=== PATIENT | female | born 1955 | race Caucasian/White ===

== ENCOUNTER → 2017-10-06 | Outpatient (CLI) | payer OTHER ==
--- NOTE | 2017-10-06 11:40 | Diagnostic Imaging Report ---
INDICATION: Popping and pain, worsening over a 3 month interval. FINDINGS: There is relatively mild arthritic narrowing of the left hip joint. The bony architecture appears normal. No abnormal periosteal reaction or erosion. No avulsion. No fracture. IMPRESSION: Unremarkable left hip radiographs. Dictated by: Dictated on workstation # [id number]
--- NOTE | 2017-10-06 11:47 | Diagnostic Imaging Report ---
INDICATION: Low back pain. Three views were obtained. FINDINGS: The alignment of the lumbar spine is normal. Vertebral body heights are well-maintained. Disc spaces are relatively well-maintained. There is some lower lumbar hypertrophic degenerative facet disease. IMPRESSION: Lower lumbar hypertrophic degenerative facet disease otherwise unremarkable. Dictated by: Dictated on workstation # [id number]
== END ==
LOC: RAD 10:47
PROVIDERS: ATTEND Internal Medicine
DX: M89.38 Hypertrophy of bone, other site (principal); M25.552 Pain in left hip
CPT/HCPCS: 72100; 73502

== ENCOUNTER → 2017-10-23 | Outpatient (CLI) | payer OTHER ==
--- NOTE | 2017-10-23 13:56 | Diagnostic Imaging Report ---
PROCEDURE: MRI lumbar spine. TECHNIQUE: Multiplanar, multisequence MRI of the lumbar spine was performed without contrast. INDICATION: Chronic low back pain. FINDINGS: The alignment of the lumbar spine is normal. The vertebral body heights are well maintained. There is no spondylolysis or spondylolisthesis. No fractures are identified. Conus medullaris is seen at L1 and is normal in appearance. The L1-L2 disc is unremarkable. At L2-L3, there is slight loss of disc height and signal intensity. There is mild facet disease and thickening of the ligamentum flavum. At L3-L4, there is slight loss of disc height and signal intensity. There is some facet disease with thickening of the ligamentum flavum. There is mild encroachment upon the right lateral recess. There is mild bilateral neuroforaminal encroachment. There is mild central spinal stenosis. At L4-L5, there is loss of disc height and signal intensity. There is facet disease and thickening of the ligamentum flavum. There is moderate central spinal stenosis with encroachment upon the lateral recess bilaterally left greater than right. There is moderate left and mild right neuroforaminal encroachment. At L5-S1, there is loss of disc height and signal intensity and some mild broad-based annular bulging slightly more prominent on the left. There is slight effacement of the ventral thecal sac with mild left neuroforaminal encroachment. The abdominal aorta is nonaneurysmal. The kidneys are unremarkable. IMPRESSION: Multilevel degenerative disc disease and diffuse lumbar spondylosis, as detailed above. Dictated by: Dictated on workstation # [id number]
== END ==
LOC: RAD 08:38
PROVIDERS: ATTEND Internal Medicine
DX: M48.061 Spinal stenosis, lumbar region without neurogenic claudication (principal); M47.817 Spondylosis without myelopathy or radiculopathy, lumbosacral region; M43.06 Spondylolysis, lumbar region
CPT/HCPCS: 72148

== ENCOUNTER → 2018-01-15 | Outpatient (CLI) | payer OTHER ==
--- NOTE | 2018-01-15 11:12 | Diagnostic Imaging Report ---
INDICATION: Osteoporosis. Bone mineral analysis of the lumbar spine and both hips was performed. The bone mineral density lumbar spine at L2-L4 is 1.018 with a T score -1.5. Bone mineral density left femoral neck is 0.847 with T score -1.4. Bone mineral density right femoral neck is 0.838 with a T score -1.4. IMPRESSION: Osteopenia of the lumbar spine and bilateral femoral necks. Dictated by: Dictated on workstation # [id number]
== END ==
LOC: RAD 08:38
PROVIDERS: ATTEND Physician Assistant
DX: M85.88 Other specified disorders of bone density and structure, other site (principal)
CPT/HCPCS: 77080

== ENCOUNTER → 2020-01-13 | Outpatient (CLI) | payer MEDICARE, OTHER ==
[~2020-01-13] VITALS: Ht 162 cm; Wt 68.0 kg
[~2020-01-13] MED LIST: CATHETER FLUSH 10 ML SYR IV PRN; REGADENOSON 0.4 MG/5 ML SYR (LEXISCAN) IV ONE
--- NOTE | 2020-01-13 09:13 | Diagnostic Imaging Report ---
EXAMINATION: Chest 2 view HISTORY: Fatigue and malaise. COMPARISON: Chest radiograph on 07/18/2016. FINDINGS: The lung volumes are normal. No focal consolidation is seen. Prominent interstitial markings are seen in the perihilar and basilar regions bilaterally. No large pleural effusion or pneumothorax is seen. The cardiomediastinal silhouette is normal in size and contour. No acute osseous abnormality is seen. IMPRESSION: 1. Prominent interstitial markings in the perihilar and basilar regions bilaterally, which may represent infection or edema. No focal consolidations. No pleural effusion. Dictated by: Dictated on workstation # [id number]
[2020-01-17 17:17] VITALS: BP 135/73
--- NOTE | 2020-01-17 17:17 | Cardiology Stress Test Report ---
Stress Test Report Type of NM Stress Test: Test Type: LEXISCAN 0.4MG/5ML Date of Procedure/Referring: Date of Procedure: Jan 13, 2020 PCP Roderick Zee DO Admitting Physician Roderick Zee DO Indications: Fatigue/malaise/hyperlipidemia Baseline Heart Rate: 70 Baseline Blood Pressure: Blood Pressure Systolic: 135 Blood Pressure Diastolic: 73 Baseline EKG: Baseline EKG: sinus rhythm Summary & Conclusion: Summary: The patient was brought to the stress lab after informed consent was taken. Stress test was performed according to the Lexiscan protocol. 0.4 mg of IV Lexiscan was given. Please see Dr. Zee's note for the stress test. Baseline EKG showed sinus rhythm at 70 BPM. Initial blood pressure was 135/73 mmHg. Maximum heart rate was 103 bpm and blood pressure 148/90 mmHg. 11 mCi of Myoview were given for rest imaging and 31 mCi of Myoview given for stress imaging. Transient ischemic dilatation score 1.17, EF 28 percent. Global hypokinesis. Possible mild small apical reversible defect. SSS 1, SRS 0, SDS 1 Conclusion: Pharmacological stress test was negative for ischemia. Moderate to severe LV systolic dysfunction with global hypokinesis. Possible mild apical ischemia. Clinical correlation is recommended. Dr. Zee was notified. Janet CANDELARIO MD Jan 17, 2020 17:17
== END ==
LOC: CARD 07:02
PROVIDERS: ATTEND Internal Medicine
DX: I45.4 Nonspecific intraventricular block (principal); M19.90 Unspecified osteoarthritis, unspecified site; G47.09 Other insomnia; F41.8 Other specified anxiety disorders; J98.4 Other disorders of lung; R35.0 Frequency of micturition; R53.83 Other fatigue
CPT/HCPCS: 71046; 78452; 93017

== ENCOUNTER → 2020-02-04 | Outpatient (CLI) | payer MEDICARE, OTHER | LOC: CARD 09:45 | PROVIDERS: ATTEND Internal Medicine | DX: R53.83 Other fatigue (principal) | CPT/HCPCS: 93306 ==

== ENCOUNTER 2020-03-21 05:42 | Outpatient (RCR) | payer MEDICARE, OTHER ==
[~2020-03-21] VITALS: Ht 162 cm; Wt 68.0 kg
[~2020-03-21 05:42] MED LIST changes: +ASPI-999 PO; -CATHETER FLUSH 10 ML SYR IV PRN; +FISH1CAP15 PO; +FLUO20CA42 PO; +LISI10TA2 PO; +LOVA20TA2 PO; +MELO7.5T46 PO; +MULT-1136 PO; -REGADENOSON 0.4 MG/5 ML SYR (LEXISCAN) IV ONE
== END 2020-03-21 15:40 | disposition home or self-care (01) ==
LOC: PREOP 05:42
PROVIDERS: ATTEND Specialist
DX: Z01.818 Encounter for other preprocedural examination (principal); Z11.59 Encounter for screening for other viral diseases
CPT/HCPCS: 87635

== ENCOUNTER 2020-03-21 07:07 | Day surgery (SDC) | payer MEDICARE, OTHER ==
[~2020-03-21] VITALS: Ht 162 cm; Wt 76.0 kg
[2020-03-21] VITALS (10 sets, daily range): BP systolic 115–156; BP diastolic 45–89
--- OUTSIDE RECORDS SUMMARY | 2020-03-21 07:13 | XMS REPORT | Continuity of Care Document ---
Author Author FABYSylvia LOVELACE 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 Unavailable Unavailable Problems Combined list of all problems from all Department of Defense and [facility] facilities. It does not include entries that were removed or entered in error. Problem Status Onset Date Problem Type Date of Resolution Comments Source Need For Prophylactic Measure Inactive Condition [facility] Medications Combined list of all outpatient medications recorded within the last 15 months b y all Department of Defense and Veterans Affairs facilities, and also all pati t-reported medications. Medication Details Route Status Patient Instructions Prescription Expires Prescript ion Number Last Dispense Date Ordering Pr ovider Order Date Source BROMSITE (bromfenac sodium), 0.075 %, DR DESOUZA, OPHTHALMIC, SUN PHARMACEUTI, 5 ml DROP BTL [id number] [facility] FLUOXETINE HCL (fluoxetine HCl), 20 MG, CAPSULE, ORAL, AVKARE, 1000 ea. BOTTLE Active [id number] 12/29/2019 [facility] 12/30/2019 [facility] FLUOXETINE HCL (fluoxetine HCl), 20 MG, CAPSULE, ORAL, AVKARE, 1000 ea. BOTTLE Active [id number] 01/13/2019 [facility] SELLERS 01/16/2019 [facility] FLUOXETINE HCL (fluoxetine HCl), 20 MG, CAPSULE, ORAL, AVKARE, 1000 ea. BOTTLE Active [id number] 04/21/2019 [facility] SELLERS 04/22/2019 [facility] FLUOXETINE HCL (fluoxetine HCl), 20 MG, CAPSULE, ORAL, AVKARE, 1000 ea. BOTTLE Active [id number] 07/02/2019 [facility] SELL[facility] 07/14/2019 [facility] FLUOXETINE HCL (fluoxetine HCl), 20 MG, CAPSULE, ORAL, AVKARE, 1000 ea. BOTTLE Active [id number] 09/30/2019 [facility] 09/30/2019 [facility] LISINOPRIL (lisinopril), 10 MG, TABLET, ORAL, LUPIN PHARMACEU, 1000 ea. BOTTLE Active [id number] 01/28/2020, 01/28/2020 [facility] LOVASTATIN (LOVASTATIN), 20 MG, TABLET, ORAL, [place] TECH, 1000 ea. BOTTLE Active [id number] 01/10/2020,[facility] 01/11/2020 [facility] LOVASTATIN (LOVASTATIN), 20 MG, TABLET, ORAL, [place] TECH, 1000 ea. BOTTLE Active [id number] 01/13/2019SELLERS,VIRGIE 01/16/2019 [facility] LOVASTATIN (LOVASTATIN), 20 MG, TABLET, ORAL, [place] TECH, 1000 ea. BOTTLE Active [id number] 04/15/2019SELLERS,VIRGIE 04/15/2019 [facility] LOVASTATIN (LOVASTATIN), 20 MG, TABLET, ORAL, [place] TECH, 1000 ea. BOTTLE Active [id number] 07/12/2019SELLERS,VIRGIE 07/23/2019 [facility] LOVASTATIN (LOVASTATIN), 20 MG, TABLET, ORAL, [place] TECH, 1000 ea. BOTTLE Active [id number] 10/10/2019SELLERS,VIRGIE 10/11/2019 [facility] Meloxicam (Meloxicam), 7.5mg, Tablet, Or al, [place] Pharmac, 1000 Ea. Bottle Active [id number] 01/12/2020, 01/12/2020 [facility] Meloxicam (Meloxicam), 7.5mg, Tablet, Or al, [place] Pharmac, 1000 Ea. Bottle Active [id number] 02/07/2020, 02/08/2020 [facility] Meloxicam (Meloxicam), 7.5mg, Tablet, Or al, [place] Pharmac, 1000 Ea. Bottle Active [id number] 03/06/2020, 03/06/2020 [facility] OFLOXACIN (OFLOXACIN), 0.3 %, DROPS, OPH THALMIC, RISING PHARM, 5 ml DROP BTL Active [id number] 03/06/2020 [facility], 03/07/2020 [facility] PREDNISOLONE ACETATE (PREDNISOLONE ACETA TE), 1%, DROPS SUSP, OPHTHALMIC, BRITT PHARM, 5 ml DROP BTL Active [id number] 03/06/2020 [facility], 03/07/2020 [facility] Allergies, Adverse Reactions, Alerts No Known Medication Allergies Immunizations No Data Provided for This Section Results No Data Provided for This Section Vital Signs No Data Provided for This Section Encounters Combined list of encounters at Department of Defense and/or Veterans Affairs (VA ) for the last 15 months. Not all VA inpatient encounters are included. The incl uded entries comply with the patient's data sharing authorizations. Location Location Details Encounter Type Encounter Number Reason For Visit Attending Provider ADM Date DC Date Status Disposition Source OUTPATIENT [id number] Notes Entered by: CARMEN PEREZ 27 Oct 2013 0845 ARIANNA VICENTE 10/27/2013 Released w/o Limitations [employer] [facility] [place], [place] [employer]([facility]) Procedures No Data Provided for This Section Social History Combined list of available smoking, tobacco, and other social history on record at Department of Defense and/or Veterans Affairs facilities. The included entrie s comply with the patient's data sharing authorizations. Social History Type Response Date Comment Source This section is an empty social history section. [facility] Assessment and Plan No Data Provided for This Section Plan of Care No Data Provided for This Section Family History No Data Provided for This Section Advance Directives No Data Provided for This Section Functional Status No Data Provided for This Section
--- OUTSIDE RECORDS SUMMARY | 2020-03-21 07:13 | XMS REPORT ---
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 consulting marine engineer Talicious [facility] [employer] Address [address] [place] [address] Care Team Providers Care Summer Associate Name Role Phone VIRGIE SELLERS DO Unavailable Unavailable KEILY SILVESTRE Unavailable Unavailable Unavailable Unavailable Allergies No Information Medications No Information Problems Active Problems Problem Normalized Date Last Normalized Normalized Provider Fa cility Classification Problem(s) Recorded Problem Problem Sta tus Duration Genitourinary Frequency of 02-02-2020 - Episodic Active GERRY Gonzales [facility] Via symptoms and micturition DO Stephanie SELLERS ill-defined Hospital - conditions (10 [place] sources.) ([address]) Other bone Hypertrophy of 02-02-2020 - Episodic Active VIRGIE [facility] Via disease and bone, other DO Stephanie SELLERS musculoskeleta site Hospital - [facility] (11 sources.) ([address]) Conduction Nonspecific 02-02-2020 - Chronic Active VIRGIE [facility] Via disorders (10 intraventricul DO Stephanie SELLERS sources.) ar block [facility] ([address]) Other lower Other 02-02-2020 - Episodic Active VIRGIE [facility] Via respiratory disorders of DO Stephanie SELLERS disease (10 lung Hospital - sources.) [place] ([address]) Malaise and Other fatigue 02-02-2020 - Episodic Active VIRGIE [facility] Via fatigue (12 DO Stephanie SELLERS sources.) [facility] ([address]) Residual Other insomnia 02-02-2020 - Chronic Active VIRGIE [facility] Via codes; DO Stephanie SELLERS unclassified Hospital - (10 sources.) [place] ([address]) Anxiety Other 02-02-2020 - Chronic Active VIRGIE [facility] V ia disorders (10 specified DO Stephanie SELLERS sources.) anxiety Hospital - disorders [place] ([address]) Other bone Other 02-02-2020 - Episodic Active [facility] disease and specified [place] Stephanie musculoskeleta disorders of Hospital - l deformities bone density [place] (10 sources.) and structure, ([address]) other site Other Pain in left 02-02-2020 - Episodic Active [facility]IE [facility] Via non-traumatic hip VERITO DO Stephanie joint Hospital - disorders (11 [place] sources.) ([address]) Disorders of Pure 02-02-2020 - Chronic Active V[facility]IE [facility] Via lipid hypercholester VERITO , DO Stephanie metabolism (8 [place], Hospital - sources.) unspecified [place] ([address]) Spondylosis; Spinal 02-02-2020 - Episodic Active V[facility]IE [facility] Via intervertebral stenosis, SELLERS , DO Stephanie disc lumbar region Hospital - disorders; without [place] other back neurogenic (66847) problems (8 claudication sources.) Other acquired Spondylolysis, 02-02-2020 - Episodic Active JENNIFER SARAH [facility] Via deformities lumbar region SELLERS , DO Stephanie (12 sources.) Hospital - [place] ([address]) Spondylosis; Spondylosis 02-02-2020 - Chronic Active VIRGIE [facility] Via intervertebral without SELLERS , DO Stephanie disc myelopathy or Hospital - disorders; radiculopathy, [place] other back lumbosacral (70856) problems (12 region sources.) Osteoarthritis Unspecified 02-02-2020 - Chronic Active WILLIA M [facility] Via (10 sources.) osteoarthritis VERITO , DO Stephanie , unspecified Hospital - site [place] ([address]) Past or Other Problems Problem Normalized Date Last Normalized Normalized Provider Fa cility Classification Problem(s) Recorded Problem Problem Sta tus Duration Unclassified Spinal no information no information no name Not Available (4 sources.) stenosis, (11294) lumbar region without neurogenic claudication Procedures No Information Immunizations No Information Results No Information Vital Signs No Information Interventions No Information Plan of Treatment No Information Goals No Information Social History No Information Functional Status No Information Mental Status No Information Encounters Encounter Normalized Encounter Encounter Diagnosis Care Provi wanda Organization Date Type 01-15-2018 Patient encounter no information no name no or ganization name 10-23-2017 Patient encounter no information no name no or ganization name 10-06-2017 Patient encounter no information no name no or ganization name 02-04-2020 Patient encounter no information VIRGIE SELLERS DO [facility] Via Stephanie procedure (no phone) [facility] (no phone) 01-13-2020 Patient encounter no information VIRGIE SELLERS DO [facility] Via Stephanie procedure (no phone) [facility] (no phone) 01-15-2018 Patient encounter no information KEILY CARBALLO ( no [facility] Via Stephanie procedure phone) [facility] (no phone) 10-23-2017 Patient encounter no information VIRGIE SELLERS DO [facility] Via Stephanie procedure (no phone) [facility] (no phone) 10-06-2017 Patient encounter no information VIRGIE SELLERS DO [facility] Via Stephanie procedure (no phone) [facility] (no phone) Medical Equipment No Information Payers No Information Additional Source Comments This clinical document has been generated using [employer] software that has been certified by the Office of the National Coordinator for Health Information Technology (ONC 15.99.04.3023.Diam.31.00.0.283063) and the National Committee for [employer] (NCQA, as an eMeasure certified technology). FOR RECORDS PERTAINING TO PATIENTS WHO ARE OR HAVE BEEN ENROLLED IN A CHEMICAL D EPENDENCY/SUBSTANCE ABUSE PROGRAM, SOME INFORMATION MAY BE OMITTED. This clinica l summary was aggregated from multiple sources. Caution should be exercised in using it in the provision of clinical care. This summary normalizes information from multiple sources, and as a consequence, information in this document may ma terially change the coding, format and clinical context of patient data. In hailey tion, data may be omitted in some cases. CLINICAL DECISIONS SHOULD BE BASED ON T HE PRIMARY CLINICAL RECORDS. [employer] provides no warranty or guara ntee of the accuracy or completeness of information in this document.The followi ng information is based on time limited clinical information
--- OUTSIDE RECORDS SUMMARY | 2020-03-21 07:13 | XMS REPORT | Continuity of Care Document ---
Author Organization Unknown Address Unknown Phone Unavailable Allergies Active Description Code Type Severity Reaction Onset Reported/Identified Relationship to Patient Clinical Status Yes No Known Drug Allergies [id number] Drug Allergy Unknown N/A 03/20/2020 Medications There is no data. Problems Date Dx Coded Attending Type Code Diagnosis Diagnosed By 07/18/2016 Ot V76.12 OTH SCREEN MAMMO- MALIGN NEOPLASM OF GISELE 07/18/2016 VIRGIE SELLERS DO Ot 793.82 INCONCLUSIVE MAMMOGRAM 07/18/2016 VIRGIE SELLERS DO, Ot V76.12 OT SCREEN MAMMO-MALIGN NEOPLASM OF GISELE 07/18/2016 VIRGIE SELLERS DO Ot 611.89 OTHER SPECIFIED DISORDERS OF BREAST 07/18/2016 VIRGIE SELLERS DO Ot V76.11 SCRN MAMMO-HIGH RISK PT, MALIGNANT NEOPL 07/18/2016 VIRGIE SELLERS DO Ot R07.89 OTHER CHEST PAIN 07/18/2016 VIRGIE SELLERS DO Ot Z12.31 ENCNTR SCREEN MAMMOGRAM FOR MALIGNANT NE 07/19/2016 VIRGIE SELLERS DO Ot R07.89 OTHER CHEST PAIN 07/19/2016 VIRGIE SELLERS DO Ot Z12.31 ENCNTR SCREEN MAMMOGRAM FOR MALIGNANT NE 08/08/2016 VIRGIE SELLERS DO Ot R07.89 OTHER CHEST PAIN 08/08/2016 VIRGIE SELLERS DO Ot Z12.31 ENCNTR SCREEN MAMMOGRAM FOR MALIGNANT NE 10/07/2017 VIRGIE SELLERS DO Ot M25.552 PAIN IN LEFT HIP 10/07/2017 VIRGIE SELLERS DO Ot M89.38 HYPERTROPHY OF BONE, OTHER SITE 10/27/2017 VIRGIE SELLERS DO Ot M43.06 SPONDYLOLYSIS, LUMBAR REGION 10/27/2017 VIRGIE SELLERS DO Ot M47.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 10/27/2017 VIRGIE SELLERS DO Ot 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, 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 10/29/2017 VIRGIE SELLERS DO Ot M43.06 SPONDYLOLYSIS, LUMBAR REGION 10/29/2017 VIRGIE SELLERS DO Ot M47.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 10/29/2017 VIRGIE SELLERS DO Ot 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, 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 01/14/2018 VIRGIE SELLERS DO Ot M25.552 PAIN IN LEFT HIP 01/14/2018 VIRGIE SELLERS DO Ot M89.38 HYPERTROPHY OF BONE, OTHER SITE 01/14/2018 VIRGIE SELLERS DO Ot M43.06 SPONDYLOLYSIS, LUMBAR REGION 01/14/2018 VIRGIE SELLERS DO Ot M47.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 01/14/2018 VIRGIE SELLERS DO Ot 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, 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 01/15/2018 VIRGIE SELLERS DO Ot M25.552 PAIN IN LEFT HIP 01/15/2018 VIRGIE SELLERS DO Ot M89.38 HYPERTROPHY OF BONE, OTHER SITE 01/15/2018 VIRGIE SELLERS DO Ot M43.06 SPONDYLOLYSIS, LUMBAR REGION 01/15/2018 VIRGIE SELLERS DO Ot M47.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 01/15/2018 VIRGIE SELLERS DO Ot 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, 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 01/16/2018 KEILY SILVESTRE Ot M85.8 8 OTH DISRD OF BONE DENSITY AND STRUCTURE, 01/21/2018 KEILY SILVESTRE Ot M85.8 8 OTH DISRD OF BONE DENSITY AND STRUCTURE, 01/12/2020 VIRGIE SELLERS DO Ot M25.552 PAIN IN LEFT HIP 01/12/2020 VIRGIE SELLERS DO Ot M89.38 HYPERTROPHY OF BONE, OTHER SITE 01/12/2020 VIRGIE SELLERS DO Ot M43.06 SPONDYLOLYSIS, LUMBAR REGION 01/12/2020 VIRGIE SELLERS DO Ot M47.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 01/12/2020 VIRGIE SELLERS DO Ot 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, 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 01/12/2020 KEILY SILVESTRE Ot M85.8 8 OTH DISRD OF BONE DENSITY AND STRUCTURE, 01/13/2020 SELLERS DO, VIRGIE West Ot M25.552 PAIN IN LEFT HIP 01/13/2020 SELLERS DO, VIRGIE West Ot M89.38 HYPERTROPHY OF BONE, OTHER SITE 01/13/2020 SELLERS DO, VIRGIE West Ot M43.06 SPONDYLOLYSIS, LUMBAR REGION 01/13/2020 SELLERS DO, VIRGIE West Ot M47.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 01/13/2020 SELLERS DO, VIRGIE West Ot 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, 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 01/13/2020 KEILY SILVESTRE Ot M85.8 8 OTH DISRD OF BONE DENSITY AND STRUCTURE, 01/17/2020 SELLERS DO, VIRGIE West Ot F41.8 OTHER SPECIFIED ANXIETY DISORDERS 01/17/2020 SELLERS DO, VIRGIE West Ot G47.09 OTHER INSOMNIA 01/17/2020 SELLERS DO, VIRGIE West Ot I45.4 NONSPECIFIC INTRAVENTRICULAR BLOCK 01/17/2020 SELLERS DO, VIRGIE West Ot J98.4 OTHER DISORDERS OF LUNG 01/17/2020 SELLERS DO, VIRGIE West Ot M19.90 UNSPECIFIED OSTEOARTHRITIS, UNSPECIFIED 01/17/2020 SELLERS DO, VIRGIE West Ot R35.0 FREQUENCY OF MICTURITION 01/17/2020 SELLERS DO, VIRGIE Wets Ot R53.83 OTHER FATIGUE 01/17/2020 SELLERS DO, VIRGIE Wets Ot F41.8 OTHER SPECIFIED ANXIETY DISORDERS 01/17/2020 SELLERS DO, VIRGIE West Ot G47.09 OTHER INSOMNIA 01/17/2020 SELLERS DO, VIRGIE West Ot I45.4 NONSPECIFIC INTRAVENTRICULAR BLOCK 01/17/2020 SELLERS DO, VIRGIE West Ot J98.4 OTHER DISORDERS OF LUNG 01/17/2020 SELLERS DO, VIRGIE West Ot M19.90 UNSPECIFIED OSTEOARTHRITIS, UNSPECIFIED 01/17/2020 SELLERS DO, VIRGIE West Ot R35.0 FREQUENCY OF MICTURITION 01/17/2020 SELLERS DO, VIRGIE West Ot R53.83 OTHER FATIGUE 01/20/2020 SELLERS DO, VIRGIE West Ot E78.00 PURE HYPERCHOLESTEROLEMIA, UNSPECIFIED 01/20/2020 SELLERS DO, VIRGIE West Ot F41.8 OTHER SPECIFIED ANXIETY DISORDERS 01/20/2020 SELLERS DO, VIRGIE West Ot G47.09 OTHER INSOMNIA 01/20/2020 SELLERS DO, VIRGIE West Ot I45.4 NONSPECIFIC INTRAVENTRICULAR BLOCK 01/20/2020 SELLERS DO, VIRGIE West Ot J98.4 OTHER DISORDERS OF LUNG 01/20/2020 SELLERS DO, VIRGIE West Ot M19.90 UNSPECIFIED OSTEOARTHRITIS, UNSPECIFIED 01/20/2020 SELLERS DO, VIRGIE West Ot R35.0 FREQUENCY OF MICTURITION 01/20/2020 SELLERS DO, VIRGIE West Ot R53.83 OTHER FATIGUE 01/20/2020 SELLERS DO, VIRGIE West Ot E78.00 PURE HYPERCHOLESTEROLEMIA, UNSPECIFIED 01/20/2020 SELLERS DO, VIRGIE West Ot F41.8 OTHER SPECIFIED ANXIETY DISORDERS 01/20/2020 SELLERS DO, VIRGIE West Ot G47.09 OTHER INSOMNIA 01/20/2020 SELLESR DO, VIRGIE West Ot I45.4 NONSPECIFIC INTRAVENTRICULAR BLOCK 01/20/2020 SELLERS DO, VIRGIE West Ot J98.4 OTHER DISORDERS OF LUNG 01/20/2020 SELLERS DO, VIRGIE West Ot M19.90 UNSPECIFIED OSTEOARTHRITIS, UNSPECIFIED 01/20/2020 SELLERS DO, VIRGIE West Ot R35.0 FREQUENCY OF MICTURITION 01/20/2020 SELLERS DO, VIRGIE West Ot R53.83 OTHER FATIGUE 01/31/2020 SELLERS DO, VIRGIE West Ot M25.552 PAIN IN LEFT HIP 01/31/2020 SELLERS DO, VIRGIE West Ot M89.38 HYPERTROPHY OF BONE, OTHER SITE 01/31/2020 SELLERS DO, VIRGIE West Ot M43.06 SPONDYLOLYSIS, LUMBAR REGION 01/31/2020 SELLERS DO, VIRGIE West Ot M47.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 01/31/2020 SELLERS DO, VIRGIE West Ot 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, 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 01/31/2020 KAYA CARBALLO, KEILY Jeronimo Ot M85.8 8 OTH DISRD OF BONE DENSITY AND STRUCTURE, 01/31/2020 SELLERS DO, VIRGIE West Ot E78.00 PURE HYPERCHOLESTEROLEMIA, UNSPECIFIED 01/31/2020 SELLERS DO, VIRGIE West Ot F41.8 OTHER SPECIFIED ANXIETY DISORDERS 01/31/2020 SELLERS DO, VIRGIE West Ot G47.09 OTHER INSOMNIA 01/31/2020 SELLERS DO, VIRGIE West Ot I45.4 NONSPECIFIC INTRAVENTRICULAR BLOCK 01/31/2020 SELLERS DO, VIRGIE West Ot J98.4 OTHER DISORDERS OF LUNG 01/31/2020 SELLERS DO, VIRGIE Wset Ot M19.90 UNSPECIFIED OSTEOARTHRITIS, UNSPECIFIED 01/31/2020 SELLERS DO, VIRGIE West Ot R35.0 FREQUENCY OF MICTURITION 01/31/2020 SELLERS DO, VIRGIE West Ot R53.83 OTHER FATIGUE 02/02/2020 SELLERS DO, VIRGIE West Ot M25.552 PAIN IN LEFT HIP 02/02/2020 SELLERS DO, VIRGIE West Ot M89.38 HYPERTROPHY OF BONE, OTHER SITE 02/02/2020 SELLERS DO, VIRGIE West Ot M43.06 SPONDYLOLYSIS, LUMBAR REGION 02/02/2020 SELLERS DO, VIRGIE West Ot M47.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 02/02/2020 SELLERS DO, VIRGIE West Ot 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, 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 02/02/2020 KAYA CARBALLO, KEILY Jeronimo Ot M85.8 8 OTH DISRD OF BONE DENSITY AND STRUCTURE, 02/02/2020 SELLERS DO, VIRGIE West Ot E78.00 PURE HYPERCHOLESTEROLEMIA, UNSPECIFIED 02/02/2020 SELLERS DO, VIRGIE West Ot F41.8 OTHER SPECIFIED ANXIETY DISORDERS 02/02/2020 SELLERS DO, VIRGIE West Ot G47.09 OTHER INSOMNIA 02/02/2020 SELLERS DO, VIRGIE West Ot I45.4 NONSPECIFIC INTRAVENTRICULAR BLOCK 02/02/2020 SELLERS DO, VIRGIE West Ot J98.4 OTHER DISORDERS OF LUNG 02/02/2020 SELLERS DO, VIRGIE West Ot M19.90 UNSPECIFIED OSTEOARTHRITIS, UNSPECIFIED 02/02/2020 SELLERS DO, VIRGIE West Ot R35.0 FREQUENCY OF MICTURITION 02/02/2020 SELLERS DO, VIRGIE West Ot R53.83 OTHER FATIGUE 02/02/2020 SELLERS DO, VIRGIE West Ot E78.00 PURE HYPERCHOLESTEROLEMIA, UNSPECIFIED 02/02/2020 SELLERS DO, VIRGIE West Ot F41.8 OTHER SPECIFIED ANXIETY DISORDERS 02/02/2020 SELLERS DO, VIRGIE West Ot G47.09 OTHER INSOMNIA 02/02/2020 SELLERS DO, VIRGIE West Ot I45.4 NONSPECIFIC INTRAVENTRICULAR BLOCK 02/02/2020 SELLERS DO, VIRGIE West Ot J98.4 OTHER DISORDERS OF LUNG 02/02/2020 SELLERS DO, VIRGIE West Ot M19.90 UNSPECIFIED OSTEOARTHRITIS, UNSPECIFIED 02/02/2020 SELLERS DO, VIRGIE West Ot R35.0 FREQUENCY OF MICTURITION 02/02/2020 SELLERS DO, VIRGIE West Ot R53.83 OTHER FATIGUE 02/04/2020 SELLERS DO, VIRGIE West Ot M25.552 PAIN IN LEFT HIP 02/04/2020 SELLERS DO, VIRGIE West Ot M89.38 HYPERTROPHY OF BONE, OTHER SITE 02/04/2020 SELLERS DO, VIRGIE West Ot M43.06 SPONDYLOLYSIS, LUMBAR REGION 02/04/2020 SELLERS DO, VIRGIE West Ot M47.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 02/04/2020 SELLERS DO, VIRGIE West Ot 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, 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 02/04/2020 KAYA CARBALLO, KEILY Jeronimo Ot M85.8 8 OTH DISRD OF BONE DENSITY AND STRUCTURE, 02/04/2020 SELLERS DO, VIRGIE West Ot E78.00 PURE HYPERCHOLESTEROLEMIA, UNSPECIFIED 02/04/2020 SELLERS DO, VIRGIE West Ot F41.8 OTHER SPECIFIED ANXIETY DISORDERS 02/04/2020 SELLERS DO, VIRGIE West Ot G47.09 OTHER INSOMNIA 02/04/2020 SELLERS DO, VIRGIE West Ot I45.4 NONSPECIFIC INTRAVENTRICULAR BLOCK 02/04/2020 SELLERS DO, VIRGIE West Ot J98.4 OTHER DISORDERS OF LUNG 02/04/2020 SELLERS DO, VIRGIE West Ot M19.90 UNSPECIFIED OSTEOARTHRITIS, UNSPECIFIED 02/04/2020 SELLERS DO, VIRGIE West Ot R35.0 FREQUENCY OF MICTURITION 02/04/2020 SELLERS DO, VIRGIE West Ot R53.83 OTHER FATIGUE 02/04/2020 SELLERS DO, VIRGIE West Ot M25.552 PAIN IN LEFT HIP 02/04/2020 SELLERS DO, VIRGIE West Ot M89.38 HYPERTROPHY OF BONE, OTHER SITE 02/04/2020 SELLERS DO, VIRGIE West Ot M43.06 SPONDYLOLYSIS, LUMBAR REGION 02/04/2020 SELLERS DO, VIRGIE West Ot M47.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 02/04/2020 SELLERS DO, VIRGIE West Ot 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, 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 02/04/2020 KEILY SILVESTRE Ot M85.8 8 OTH DISRD OF BONE DENSITY AND STRUCTURE, 02/04/2020 SELLERS DO, VIRGIE West Ot E78.00 PURE HYPERCHOLESTEROLEMIA, UNSPECIFIED 02/04/2020 SELLERS DO, VIRGIE West Ot F41.8 OTHER SPECIFIED ANXIETY DISORDERS 02/04/2020 SELLERS DO, VIRGIE West Ot G47.09 OTHER INSOMNIA 02/04/2020 SELLERS DO, VIRGIE West Ot I45.4 NONSPECIFIC INTRAVENTRICULAR BLOCK 02/04/2020 SELLERS DO, VIRGIE West Ot J98.4 OTHER DISORDERS OF LUNG 02/04/2020 SELLERS DO, VIRGIE West Ot M19.90 UNSPECIFIED OSTEOARTHRITIS, UNSPECIFIED 02/04/2020 SELLERS DO, VIRGIE West Ot R35.0 FREQUENCY OF MICTURITION 02/04/2020 SELLERS DO, VIRGIE West Ot R53.83 OTHER FATIGUE 02/04/2020 SELLERS DO, VIRGIE West Ot M25.552 PAIN IN LEFT HIP 02/04/2020 SELLERS DO, VIRGIE West Ot M89.38 HYPERTROPHY OF BONE, OTHER SITE 02/04/2020 SELLERS DO, VIRGIE West Ot M43.06 SPONDYLOLYSIS, LUMBAR REGION 02/04/2020 SELLERS DO, VIRGIE West Ot M47.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 02/04/2020 SELLERS DO, VIRGIE West Ot 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, 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 02/04/2020 KEILY SILVESTRE Ot M85.8 8 OTH DISRD OF BONE DENSITY AND STRUCTURE, 02/04/2020 SELLERS DO, VIRGIE West Ot E78.00 PURE HYPERCHOLESTEROLEMIA, UNSPECIFIED 02/04/2020 SELLERS DO, VIRGIE West Ot F41.8 OTHER SPECIFIED ANXIETY DISORDERS 02/04/2020 SELLERS DO, VIRGIE West Ot G47.09 OTHER INSOMNIA 02/04/2020 SELLERS DO, VIRGIE West Ot I45.4 NONSPECIFIC INTRAVENTRICULAR BLOCK 02/04/2020 SELLERS DO, VIRGIE West Ot J98.4 OTHER DISORDERS OF LUNG 02/04/2020 SELLERS VIRGIE MAJOR Ot M19.90 UNSPECIFIED OSTEOARTHRITIS, UNSPECIFIED 02/04/2020 SELLERS VIRGIE MAJOR Ot R35.0 FREQUENCY OF MICTURITION 02/04/2020 SELLERSVIRGIE GARDINER DO Ot R53.83 OTHER FATIGUE 02/08/2020 SELLERS VIRGIE MAJOR Ot R53.83 OTHER FATIGUE 02/24/2020 SELLERS VIRGIE MAJOR Ot R53.83 OTHER FATIGUE Procedures There is no data. Results There is no data. Encounters ACCT No. Visit Date/Time Discharge Status Pt. Type Provider Facility Loc./Unit Complaint [id number] 02/04/2020 09:45:00 020 23:59:59 CLS Outpatient VIRGIE SELLERS DO [facility] CARD FATIGUE AND MAL AISE [id number] 01/13/2020 07:02:00 020 23:59:59 CLS Outpatient VIRGIE SELLERS DO [facility] CARD FATIGUE MALAISE,HYPERCHOLESTEROLEMIA [id number] 01/15/2018 08:38:00 018 23:59:59 CLS Outpatient KEILY SILVESTRE [facility] RAD OSTEOPOROSIS M81.0 [id number] 10/23/2017 08:38:00 018 23:59:59 CLS Outpatient VIRGIE SELLERS DO [facility] RAD M54.5 [id number] 10/06/2017 10:47:00 018 23:59:59 CLS Outpatient VIRGIE SELLERS DO [facility] RAD LT HIP PAIN,M54 .5 [id number] 07/18/2016 11:21:00 016 23:59:59 DONALD Outpatient VIRGIE SELLERS DO [facility] RAD R07.89 [id number] 12/01/2013 07:50:00 014 23:59:59 CLS Outpatient VIRGIE SELLERS DO [facility] RAD ABNORMAL MAMMO [id number] 11/18/2013 06:52:00 014 23:59:59 CLS Outpatient VIRGIE SELLERS DO [facility] RAD ROUTINE [id number] 03/24/2020 08:00:00 P EN Preadmit DIANDRA TINSLEY MD [facility] SDC CATARACT LEFT EYE [id number] 03/21/2020 08:00:00 P EN Preadmit CONNIE BERRY FACCSARAI FACP CCDS [facility] ABN STRESS TEST [id number] 03/20/2020 05:40:[address] Outpatient DIANDRA TINSLEY MD [facility] PREOP CATARACT LEFT EYE [id number] 11/16/2012 07:09:00 Document Registration
[2020-03-21] MEDS ORDERED: HEParin (CATH LAB) 2,000 ML IV ONE (07:14)
[2020-03-21] MEDS ORDERED: NS IV 1000 ML 1,000 ML ONE (07:14)
[2020-03-21] MEDS ORDERED: LIDOCAINE 1% INJ 20 ML 20 ML VIAL ONE (07:14)
[2020-03-21] MEDS ORDERED: NS IV 1000 ML 1,000 ML IV SCH ×2 (07:30→09:36)
[2020-03-21 07:38] LABS: HEMOGLOBIN 14.6 G/DL (11.5-16.0); MEAN PLATELET VOLUME 8.9 FL (7.4-10.4); RED CELL DISTRIBUTION WIDTH 13.8 % (10.0-14.5)
[2020-03-21] MEDS ORDERED: fentaNYL INJECTION 100 MCG/2 ML AMP ONE (07:50)
[2020-03-21] MEDS ORDERED: MIDAZOLAM 5 MG/5 ML (VERSED) VIAL ONE (07:50)
[2020-03-21 07:51] LABS: PROTHROMBIN TIME PATIENT 13.4 SEC (12.2-14.7)
[2020-03-21 08:00] LABS: ALANINE AMINOTRANSFERASE 43 U/L (0-55); ALBUMIN 4.7 GM/DL (3.2-4.5); ALKALINE PHOSPHATASE 83 U/L (40-136); BILIRUBIN,TOTAL 0.4 MG/DL (0.1-1.0); BUN/CREATININE RATIO 19; CALCIUM 9.5 MG/DL (8.5-10.1); CARBON DIOXIDE 24 MMOL/L (21-32); CHLORIDE 107 MMOL/L (98-107); CHOLESTEROL 237 MG/DL (< 200); CREATININE SERUM 0.83 MG/DL (0.60-1.30); GFR ESTIMATED > 60; GLUCOSE 104 MG/DL (70-105); HDL CHOLESTEROL 90 MG/DL (40-60); POTASSIUM 3.9 MMOL/L (3.6-5.0); SODIUM 141 MMOL/L (135-145); TOTAL PROTEIN 7.5 GM/DL (6.4-8.2); TRIGLYCERIDES 57 MG/DL (<150); VLDL CHOLESTEROL 11 MG/DL (5-40)
[2020-03-21] MEDS ORDERED: MIDAZOLAM 2 MG/2 ML (VERSED) VIAL ONE (08:49)
--- NOTE | 2020-03-21 09:25 | Cardiac Procedure Note-CS/ASA ---
Pre-Procedure Note Pre-Op Procedure Note H&P Reviewed The H&P was reviewed, patient examined and no changes noted. Date H&P Reviewed: Mar 21, 2020 Time H&P Reviewed: 08:55 Conscious Sedation Pre-Proced Time 08:55 ASA Score 3 For ASA 3 and 4: Consider anesthesia and medical clearance. Also, for patients with a history of failed moderate sedation consider anesthesia. Airway Lungs Heart ASA score ASA 1: a normal healthy patient ASA 2: a patient with a mild systemic disease (mid diabetes, controlled hypertension, obesity ASA 3: a patient with a severe systemic disease that limits activity (angina, COPD, prior Myocardial infarction) ASA 4: a patient with an incapacitating disease that is a constant threat to life (CHF, renal failure) ASA 5: a moribund patient not expected to survive 24 hrs. (ruptured aneurysm) ASA 6: a declared brain- patient whose organs are being harvested. For emergent operations, add the letter E after the classification Mallampati Classification Grade 2 Sedation Plan Analgesia, Amnesia, Plan communicated to team members, Discussed options with patient/fam, Discussed risks with patient/fam The patient is an appropriate candidate to undergo the planned procedure, sedation, and anesthesia. The patient immediately re-assessed prior to indication. SARAI ROSALES MD FACP FAC CCDS Mar 21, 2020 09:25
--- NOTE | 2020-03-21 09:40 | Discharge Inst-Cardiology ---
Discharge Inst-Cardiac Discharge Medications Continued Medications: Fish Oil/Dha/Epa (Fish Oil 1,200 mg Fish Oil) 1 Each Capsule 1 EACH PO DAILY, CAP Fluoxetine HCl (Prozac) 20 Mg Capsule 20 MG PO DAILY, CAP Lisinopril (Lisinopril) 10 Mg Tablet 10 MG PO DAILY, TAB Lovastatin (Lovastatin) 20 Mg Tablet 20 MG PO DAILY, TAB Meloxicam (Meloxicam) 7.5 Mg Tablet 7.5 MG PO DAILY, TAB Multivitamin (Multivitamin) 1 Each Tablet 1 EACH PO DAILY, TAB Discontinued Medications: Aspirin (Aspirin) 81 Mg Tab.chew 81 MG PO DAILY, TAB SARAI ROSALES MD FACP FAC CCDS Mar 21, 2020 09:40
--- NOTE | 2020-03-21 09:40 | Discharge Inst-Post CATH ---
Discharge Inst-CATH/EP Post Cardiac Cath/EP D/C Inst Follow Up/Plan F/u with Dr Wong in 2 weeks ACTIVITY * Go Home directly and rest. * Limit activity of the leg (or wrist if it was used) for 7 days including aerobics, swimming, jogging, bicycling, etc. * Restrict stair-climbing for 7 days if possible, if not, climb up with your n on-cath leg, then bring together on the same step. * Avoid lifting, pushing, pulling or excessive movement of the affected ex tremity for 7 days. * Customary sexual activity may be resumed after 2 days-use caution not to use a position that strains or causes pain to the affected extremity. * No driving for 24 hours. * NO SMOKING. * Avoid straining for bowel movements for 7 days. * Gentle walking on level ground is allowed. * Returning to work will depend on the type of procedure and the results. Your doctor will discuss this with you. CALL YOUR DOCTOR FOR ANY OF THE FOLLOWING: *If bleeding from the puncture site occurs- Apply gentle pressure to site with clean cloth and call your doctor or EMS. * If a knot or lump forms under the skin, increases in size, or causes pain. * If bruising appears to be worsening or moving further down your leg instead of disappearing. * Temperature above 101 F. CARE OF YOUR GROIN INCISION; * Bruising or purple discoloration of the skin near the puncture site is common. * You may shower only, no bathtub bathing for 5 days. Be careful to avoid slipping as your leg may feel stiff. * If a closure device was used on your femoral artery, please see the attached guide regarding care of the device and your leg. * Leave dressing on FOR 24 hours. CARE OF YOUR WRIST INCISION; * Bruising or purple discoloration of the skin near the puncture site is common. * You may shower. * DO NOT submerge wrist. * Leave dressing on FOR [address] [facility] Mar 21, 2020 09:40
--- NOTE | 2020-03-21 09:43 | CARDIAC CATHETERIZATION ---
DATE OF SERVICE: 03/21/2020 CARDIAC CATHETERIZATION REPORT INDICATIONS: The patient is a 64-year-old lady, who has symptoms of fatigue and shortness of breath. She had a myocardial perfusion imaging study done in 12/2019 and that was reported as having shown apical ischemia and generalized hypokinesis of the left ventricle with an ejection fraction of 28%. Because of this, cardiac catheterization was recommended when we saw her in the office. Informed consent was obtained. DESCRIPTION OF PROCEDURE: She was brought to the cardiac catheterization laboratory in a fasting state. Right groin was prepared and draped in the usual sterile fashion. Lidocaine 1% was used for local anesthesia. Modified Seldinger technique was used to advance a 5-[place] sheath in the right femoral artery. A 5-[place] JL4 catheter was used for left coronary angiography. A 5-[place] JR4 catheter was used for right coronary angiography. A 5-[place] pigtail catheter was used for left heart catheterization and left ventricular angiography. The pigtail was then pulled back and removed. Angiography of the right femoral artery was carried out through the sheath. Mynx was used to achieve hemostasis. The patient tolerated the procedure well. HEMODYNAMICS: Left ventricular end-diastolic pressure following coronary angiography was 15 mmHg. There was no significant pressure gradient on pullback across the aortic valve. Ascending aortic pressure was 113/53 with a mean of 35 mmHg. LEFT VENTRICULAR ANGIOGRAPHY: Left ventricular angiography was carried out in the right anterior oblique projection. Global left ventricular systolic function is normal. No regional wall motion abnormality was seen in this view. Left ventricular ejection fraction is approximately 55%. CORONARY ANGIOGRAPHY: Left main coronary artery, left anterior descending artery, left circumflex artery, right coronary artery do not exhibit any angiographically significant coronary artery disease. Right coronary artery is dominant. CONCLUSIONS: 1. No angiographically significant coronary artery disease. 2. Normal global left ventricular systolic function with an ejection fraction of 55%. 3. Mild elevation of left ventricular end-diastolic pressure. DISCUSSION AND RECOMMENDATIONS: Based on results of the study, it appears appropriate to continue a conservative approach. Myocardial perfusion imaging in 12/2019 was reported to be abnormal. This appears to have been a false positive study. Job ID: [id number] DocumentID: [id number] Dictated Date: 03/21/2020 09:30:47 Mercury Recoverer Date: 03/21/2020 09:42:50 Dictated By: SARAI ROSALES MD, MA, FACP, FACC,
[2020-03-21] MEDS ORDERED: PATIENT MAY USE OWN MEDS, ALL PO SCH (09:45)
== END 2020-03-21 12:40 | disposition home or self-care (01) ==
LOC: CATH 07:07 → SDC 09:40 → CATH 12:40
PROVIDERS: ATTEND Internal Medicine Cardiovascular Disease
DX: R06.02 Shortness of breath (principal); R53.83 Other fatigue; I44.7 Left bundle-branch block, unspecified; E78.5 Hyperlipidemia, unspecified; Z87.891 Personal history of nicotine dependence; Z79.82 Long term (current) use of aspirin; Z79.899 Other long term (current) drug therapy
CPT/HCPCS: 80053; 80061; 85027; 85610; 85730; 87081; 93458; C1760; C1894; 36415

== ENCOUNTER 2020-03-24 06:12 | Day surgery (SDC) | payer MEDICARE, OTHER ==
[~2020-03-24] VITALS: Ht 162 cm; Wt 76.0 kg
[2020-03-24] MEDS ORDERED: TIMOLOL MALEATE 0.5% 5 ML (TIMOPTIC) BTL OU PRN (06:15)
[2020-03-24] MEDS ORDERED: LIDOCAINE PF 1% 2 ML VIAL IR PRN (06:15)
[2020-03-24] MEDS ORDERED: MOXIFLOXACIN OPHTH SOLN 5 MG/ML 0.3 ML SYRINGE OP ONE (06:15)
[2020-03-24] MEDS ORDERED: POVIDONE (BETADINE) OPHTH SOLN 5% 30 ML OP ONE (06:15)
[2020-03-24 06:21] VITALS: BP 124/69
--- OUTSIDE RECORDS SUMMARY | 2020-03-24 06:23 | XMS REPORT | Continuity of Care Document ---
Author Organization Unknown Address Unknown Phone Unavailable Allergies Active Description Code Type Severity Reaction Onset Reported/Identified Relationship to Patient Clinical Status Yes No Known Drug Allergies [id number] Drug Allergy Unknown N/A 03/20/2020 Medications There [...] SCREEN MAMMOGRAM FOR MALIGNANT NE 07/19/2016 VIRGIE ESLLERS DO Ot R07.89 OTHER CHEST PAIN 07/19/2016 [...] DO Ot M43.06 SPONDYLOLYSIS, LUMBAR REGION 01/15/2018 VIGRIE SELLERS DO Ot M47.817 SPONDYLS W/O MYELOPATHY [...] DO, VIRGIE West Ot R53.83 OTHER FATIGUE 01/17/2020 SELLERS DO, VIRGIE West Ot F41.8 [...] SPINAL STENOSIS, 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 01/31/2020 KAAY CARBALLO, KEILY Jeronimo Ot M85.8 8 OTH [...] DISORDERS OF LUNG 01/31/2020 SELLERS DO, VIRGIE West Ot M19.90 UNSPECIFIED OSTEOARTHRITIS, UNSPECIFIED 01/31/2020 SELLERS [...] DO, VIRGIE West Ot R53.83 OTHER FATIGUE 02/08/2020 SELLERS DO, VIRGIE West Ot R53.83 OTHER FATIGUE 02/24/2020 SELLERS DO, VIRGIE West Ot R53.83 OTHER FATIGUE 03/21/2020 SELLERS DO, VIRGIE West Ot M25.552 PAIN IN LEFT HIP 03/21/2020 SELLERS DO, VIRGIE West Ot M89.38 HYPERTROPHY OF BONE, OTHER SITE 03/21/2020 SELLERS DO, VIRGIE West Ot M43.06 SPONDYLOLYSIS, LUMBAR REGION 03/21/2020 SELLERS DO, VIRGIE West Ot M47.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 03/21/2020 SELLERS DO, VIRGIE West Ot 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, 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 03/21/2020 KAYA CARBALLO, KEILY Jeronimo Ot M85.8 8 OT DISRD OF BONE DENSITY AND STRUCTURE, 03/21/2020 SELLERS DO, VIRGIE West Ot E78.00 PURE HYPERCHOLESTEROLEMIA, UNSPECIFIED 03/21/2020 SELLERS DO, VIRGIE West Ot F41.8 OTHER SPECIFIED ANXIETY DISORDERS 03/21/2020 [place] DOVIRGIE Ot G47.09 OTHER INSOMNIA 03/21/2020 [place] DO, VIRGIE West Ot I45.4 NONSPECIFIC INTRAVENTRICULAR BLOCK 03/21/2020 [facility], VIRGIE West Ot J98.4 OTHER DISORDERS OF LUNG 03/21/2020 SELLERS DO, VIRGIE West Ot M19.90 UNSPECIFIED OSTEOARTHRITIS, UNSPECIFIED 03/21/2020 SELLERS DO, VIRGIE West Ot R35.0 FREQUENCY OF MICTURITION 03/21/2020 SELLERS DOVIRGIE Ot R53.83 OTHER FATIGUE 03/21/2020 SELLERS DO, VIRGIE West Ot R53.83 OTHER FATIGUE Procedures There is no data. Results Test Result Range Coronavirus SARS-CoV-2 SO 2018 - 0 07:30 Coronavirus Ab [Units/volume] in Serum Negative Negative Automated blood complete blood count (he mogram) panel - 03/21/20 07:31 Blood leukocytes automated count (number/volume) 6.0 10*3/uL 4.3-11.0 Blood erythrocytes automated count (number/volume) 4.70 10*6/uL 4.35-5.85 Venous blood hemoglobin measurement (mass/volume) 14.6 g/dL 11.5-16.0 Blood hematocrit (volume fraction) 44 % 35-52 Automated erythrocyte mean corpuscular volume 93 [ foz_us] 80-99 Automated erythrocyte mean corpuscular h emoglobin (mass per erythrocyte) 31 pg 25-34 Automated erythrocyte mean corpuscular h emoglobin concentration measurement (mass/volume) 33 g/dL 32-36 Automated erythrocyte distribution width ratio 13. 8 % 10.0- 14.5 Automated blood platelet count (count/volume) 247 10*3/uL 130-400 Automated blood platelet mean volume measurement 8.9 [foz_us] 7.4-10.4 PT panel in platelet poor plasma by coag ulation assay - 03/21/20 07:31 Prothrombin time (PT) in platelet poor plasma by coagu lation assay 13.4 s 12.2-14.7 INR in platelet poor plasma or blood by coagulation as say 1.0 0.8-1.4 Activated partial thromboplastin time (a PTT) in platelet poor plasma bycoagulation assay - 03/21/20 07:31 Activated partial thromboplastin time (a PTT) in platelet poor plasma bycoagulation assay 27 s 24-35 Comprehensive metabolic panel - 03/21/20 07:31 Serum or plasma sodium measurement (moles/volume) 141 mmol/L 135-145 Serum or plasma potassium measurement (moles/volume) 3.9 mmol/L 3.6-5.0 Serum or plasma chloride measurement (moles/volume) 107 mmol/L 98-107 Carbon dioxide 24 mmol/L 21-32 Serum or plasma anion gap determination (moles/volume) 10 mmol/L 5-14 Serum or plasma urea nitrogen measurement (mass/volume ) 16 mg/dL 7-18 Serum or plasma creatinine measurement (mass/volume) 0.83 mg/dL 0.60-1.30 Serum or plasma urea nitrogen/creatinine mass ratio 19 NRG Serum or plasma creatinine measurement w ith calculation of estimated glomerular filtration rate > NRG Serum or plasma glucose measurement (mass/volume) 104 mg/dL 70-105 Serum or plasma calcium measurement (mass/volume) 9.5 mg/dL 8.5-10.1 Serum or plasma total bilirubin measurement (mass/volu me) 0.4 mg/dL 0.1-1.0 Serum or plasma alkaline phosphatase idania surement (enzymatic activity/volume) 83 U/L 40-136 Serum or plasma aspartate aminotransfera se measurement (enzymatic activity/volume) 31 U/L 5-34 Serum or plasma alanine aminotransferase measurement (enzymatic activity/volume) 43 U/L 0-55 Serum or plasma protein measurement (mass/volume) 7.5 g/dL 6.4-8.2 Serum or plasma albumin measurement (mass/volume) 4.7 g/dL 3.2-4.5 Lipid 1996 panel - 03/21/20 07:31 Serum or plasma triglyceride measurement (mass/volume) 57 mg/dL <150 Serum or plasma cholesterol measurement (mass/volume) 237 mg/dL < 200 Serum or plasma cholesterol in HDL measurement (mass/v olume) 90 mg/dL 40-60 Cholesterol in LDL [mass/volume] in serum or plasma by direct assay 150 mg/dL 1-129 Serum or plasma cholesterol in VLDL measurement (mass/ volume) 11 mg/dL 5-40 Methicillin resistant Staphylococcus aur eus (MRSA) screening culture - 03/21/20 07:31 Methicillin resistant Staphylococcus aureus (MRSA) scr eening culture NEG NRG Encounters ACCT No. Visit Date/Time Discharge Status Pt. Type Provider Facility Loc./Unit Complaint [id number] 03/21/2020 05:42:00 15:40:00 DIS Outpatient DIANDRA TINSLEY MD [facility] PREOP CATARACT LEFT EYE [id number] 03/21/2020 07:07:00 12:40:00 DIS Outpatient CONNIE BERRY FACC, SARAI FACP CC DS [facility] CATH ABN STRESS TEST [id number] 02/04/2020 09:45:00 23:59:59 CLS Outpatient VIRGIE SELLERS DO [facility] CARD FATIGUE AND MAL AISE [id number] 01/13/2020 07:02:00 23:59:59 CLS Outpatient VIRGIE SELLERS DO [facility] CARD FATIGUE MALAISE,HYPERCHOLESTEROLEMIA [id number] 01/15/2018 08:38:00 018 23:59:59 CLS Outpatient KEILY SILVESTRE [facility] RAD OSTEOPOROSIS M81.0 [id number] 10/23/2017 08:38:00 018 23:59:59 CLS Outpatient VIRGIE SELLERS DO [facility] RAD M54.5 [id number] 10/06/2017 10:47:00 018 23:59:59 CLS Outpatient VIRGIE SELLERS DO [facility] RAD LT HIP PAIN,M54 .5 [id number] 07/18/2016 11:21:00 016 23:59:59 CLS Outpatient VIRGIE SELLERS DO [facility] RAD R07.89 [id number] 12/01/2013 07:50:00 014 23:59:59 CLS Outpatient VIRGIE SELLERS DO [facility] RAD ABNORMAL MAMMO [id number] 11/18/2013 06:52:00 014 23:59:59 CLS Outpatient VIRGIE SELLERS DO [facility] RAD ROUTINE [id number] 03/24/2020 08:00:00 P DIANDRA Fairchild MD [facility] CATARACT LEFT EYE [id number] 11/16/2012 07:09:00 Document Registration
--- OUTSIDE RECORDS SUMMARY | 2020-03-24 06:23 | XMS REPORT | Continuity of Care Document ---
Author Author FABYSylvia LOVELACE [facility] Address Unknown Phone Unavailable Care Team Providers Care Lead Person Name Role Phone [facility] Unavailable Unavailable Problems Combined list of all problems from all Department of Defense and [facility] facilities. It does not include entries that were removed or entered in error. Problem Status Onset Date Problem Type Date of Resolution Comments Source Need For Prophylactic Measure Inactive Condition [facility] Medications Combined list of all outpatient medications [...] SUN PHARMACEUTI, 5 ml DROP BTL Active [id number] 03/06/2020 [facility] 03/07/2020 [facility] FLUOXETINE HCL (fluoxetine HCl), 20 MG, CAPSULE, ORAL, AVKARE, 1000 ea. BOTTLE Active [id number] 12/29/2019 VIRGIE SELLERS 12/30/2019 [facility] FLUOXETINE HCL (fluoxetine HCl), 20 MG, CAPSULE, ORAL, AVKARE, 1000 ea. BOTTLE Active [id number] 01/13/2019 VIRGIE SELLERS 01/16/2019 [facility] FLUOXETINE HCL (fluoxetine HCl), 20 MG, CAPSULE, ORAL, AVKARE, 1000 ea. BOTTLE Active [id number] 04/21/2019 VIRGIE SELLERS 04/22/2019 [facility] FLUOXETINE HCL (fluoxetine HCl), 20 MG, CAPSULE, ORAL, AVKARE, 1000 ea. BOTTLE Active [id number] 07/02/2019 VIRGIE SELLERS 07/14/2019 [facility] FLUOXETINE HCL (fluoxetine HCl), 20 MG, CAPSULE, ORAL, AVKARE, 1000 ea. BOTTLE Active [id number] 09/30/2019 VIRGIE SELLERS 09/30/2019 [facility] LISINOPRIL (lisinopril), 10 MG, TABLET, ORAL, LUPIN PHARMACEU, 1000 ea. BOTTLE Active [id number] 01/28/2020, 01/28/2020 [facility] LOVASTATIN (LOVASTATIN), 20 MG, TABLET, ORAL, [place] TECH, 1000 ea. BOTTLE Active [id number] 01/10/2020,VIRGIE 01/11/2020 [facility] LOVASTATIN (LOVASTATIN), 20 MG, TABLET, ORAL, [place] TECH, 1000 ea. BOTTLE Active [id number] 01/13/2019SELLERS,VIRGIE 01/16/2019 [facility] LOVASTATIN (LOVASTATIN), 20 MG, TABLET, ORAL, [place] TECH, 1000 ea. BOTTLE Active [id number] 04/15/2019SELLERS,VIRGIE 04/15/2019 [facility] LOVASTATIN (LOVASTATIN), 20 MG, TABLET, ORAL, [place] TECH, 1000 ea. BOTTLE Active [id number] 07/12/2019SELLERS,VIRGIE 07/23/2019 [facility] LOVASTATIN (LOVASTATIN), 20 MG, TABLET, ORAL, [place] TECH, 1000 ea. BOTTLE Active [id number] 10/10/2019SELLERS,VIRGIE 10/11/2019 [facility] Meloxicam (Meloxicam), 7.5mg, Tablet, Or al, [place] Pharmac, 1000 Ea. Bottle Active [id number] 01/12/2020, 01/12/2020 [facility] Meloxicam (Meloxicam), 7.5mg, Tablet, Or al, [place] Pharmac, 1000 Ea. Bottle Active [id number] 02/07/2020, 02/08/2020 [facility] Meloxicam (Meloxicam), 7.5mg, Tablet, Or al, [place] Pharmac, 1000 Ea. Bottle Active [id number] 03/06/2020, 03/06/2020 [facility] OFLOXACIN (OFLOXACIN), 0.3 %, DROPS, OPH THALMIC, RISING PHARM, 5 ml DROP BTL Active [id number] 03/06/2020 [place], 03/07/2020 [facility] PREDNISOLONE ACETATE (PREDNISOLONE ACETA TE), 1%, DROPS SUSP, OPHTHALMIC, BRITT PHARM, 5 ml DROP BTL Active [id number] 03/06/2020 [place], 03/07/2020 [facility] [...] Date DC Date Status Disposition Source OUTPATIENT [id number] Notes Entered by: CARMEN PEREZ 27 Oct 2013 0845 ARIANNA VICENTE 10/27/2013 Released w/o Limitations [facility] [place], [place] [employer]) Procedures No Data Provided for This Section Social History Combined list of available smoking, tobacco, and other social history on record at Department of Defense and/or Veterans Affairs facilities. The included entrie s comply with the patient's data sharing authorizations. Social History Type Response Date Comment Source This section is an empty social history section. [facility] Assessment and Plan No Data Provided for This Section Plan of Care No Data Provided for This Section Family History No Data Provided for This Section Advance Directives No Data Provided for This Section Functional Status No Data Provided for This Section
[2020-03-24] MEDS: TETRACAINE 0.5% OPHTH SOLN 4 ML BTL (SINGLE DOSE ONLY) OU PRN ×4 (06:28→06:54)
[2020-03-24] MEDS: CYCLOPENTOLATE 1% (CYCLOGYL) 2 ML DROPS OP SCH ×3 (06:39→06:54)
[2020-03-24] MEDS: PHENYLEPHRINE 10% OPHTH (NEO-SYN) 5 ML BTL OU SCH ×3 (06:39→06:54)
[2020-03-24] MEDS ORDERED: MIDAZOLAM 2 MG/2 ML (VERSED) VIAL ONE ×2 (06:40→07:15)
--- NOTE | 2020-03-24 07:18 | Ophthalmologist Pre-Op Note ---
Pre-Operative Progress Note H&P Reviewed The H&P was reviewed, patient examined and no changes noted. Date H&P Reviewed: Mar 24, 2020 Time H&P Reviewed: 07:18 Pre-Op Dx Cataract, Left Eye DIANDRA TINSLEY MD Mar 24, 2020 07:18
[2020-03-24] MEDS ORDERED: acetaZOLAMIDE ER 500 MG CAP (DIAMOX SEQUELS) PO ONE (07:30)
--- NOTE | 2020-03-24 07:42 | Ophthalmology Operative Report ---
Cataract removal/placement IOL PREOPERATIVE DIAGNOSIS: Cataract Left Eye POSTOPERATIVE DIAGNOSIS: Cataract Left Eye PROCEDURE: Cataract removal and placement of posterior chamber implant, left eye SURGEON: Rocky Tinsley ANESTHESIA: Topical with sedation COMPLICATIONS: None ESTIMATED BLOOD LOSS: Minimal DESCRIPTION OF PROCEDURE: After proper informed consent was obtained, the patient, a 64 female, was taken to the Operating Room and the left eye was anesthetized with tetracaine. The left eye was then prepped and draped in the usual manner. A wire lid speculum was placed. A paracentesis was made at the left hand position. Preservative free lidocaine was injected into the anterior chamber followed by viscoelastic. A clear corneal incision was made in the temporal position. A capsulorrhexis was preformed and the central nuclear and cortical material were removed. The posterior capsule was polished and an Scar 16.5 AU00T0 was placed into the capsular bag. The residual viscoelastic was aspirated and balanced saline solution was injected into the anterior chamber. Moxifloxacin was injected into the anterior chamber. The wound was checked and found to be water tight. The patient tolerated the procedure well without complications. ROCKY TINSLEY MD Mar 24, 2020 07:42
[2020-03-24 07:50] VITALS: BP 145/62
--- NOTE | 2020-03-24 10:24 | Anesthesia-General Post-Op ---
MAC Patient Condition Mental Status/LOC: Same as Preop Cardiovascular: Satisfactory Nausea/Vomiting: Absent Respiratory: Satisfactory Pain: Controlled Complications: Absent Post Op Complications Complications None Follow Up Care/Instructions Patient Instructions None needed. Anesthesiology Discharge Order Discharge Order Patient is doing well, no complaints, stable vital signs, no apparent adverse anesthesia problems. No complications reported per nursing. LALA KENYON CRNA Mar 24, 2020 10:24
== END 2020-03-24 07:50 | disposition home or self-care (01) ==
LOC: SDC 06:12
PROVIDERS: ATTEND Specialist
DX: H25.12 Age-related nuclear cataract, left eye (principal); F41.9 Anxiety disorder, unspecified; M19.90 Unspecified osteoarthritis, unspecified site; Z87.891 Personal history of nicotine dependence; Z80.0 Family history of malignant neoplasm of digestive organs; Z79.899 Other long term (current) drug therapy; Z79.82 Long term (current) use of aspirin
CPT/HCPCS: 66984; V2632

== ENCOUNTER 2020-04-04 05:47 | Outpatient (RCR) | payer MEDICARE, OTHER | END 2020-07-03 | disposition home or self-care (01) | LOC: PREOP 05:47 | PROVIDERS: ATTEND Specialist | DX: Z01.818 Encounter for other preprocedural examination (principal); H25.11 Age-related nuclear cataract, right eye; Z20.828 Contact with and (suspected) exposure to other viral communicable diseases | CPT/HCPCS: 87635 ==

== ENCOUNTER 2020-04-07 06:06 | Day surgery (SDC) | payer MEDICARE, OTHER ==
[~2020-04-07] VITALS: Ht 162 cm; Wt 76.0 kg
[2020-04-07 06:00] VITALS: BP 127/67
[2020-04-07] MEDS ORDERED: POVIDONE (BETADINE) OPHTH SOLN 5% 30 ML OP ONE (06:15)
[2020-04-07] MEDS ORDERED: MOXIFLOXACIN OPHTH SOLN 5 MG/ML 0.3 ML SYRINGE OP ONE ×2 (06:15→07:15)
[2020-04-07] MEDS: TETRACAINE 0.5% OPHTH SOLN 4 ML BTL (SINGLE DOSE ONLY) OU PRN ×4 (06:15→06:43)
[2020-04-07] MEDS ORDERED: LIDOCAINE PF 1% 2 ML VIAL IR PRN (06:15)
[2020-04-07] MEDS ORDERED: TIMOLOL MALEATE 0.5% 5 ML (TIMOPTIC) BTL OU PRN (06:15)
[2020-04-07] MEDS: PHENYLEPHRINE 10% OPHTH (NEO-SYN) 5 ML BTL OU SCH ×3 (06:31→06:43)
[2020-04-07] MEDS: CYCLOPENTOLATE 1% (CYCLOGYL) 2 ML DROPS OP SCH ×3 (06:31→06:43)
[2020-04-07] MEDS ORDERED: acetaZOLAMIDE ER 500 MG CAP (DIAMOX SEQUELS) PO ONE (07:30)
[2020-04-07] MEDS ORDERED: MIDAZOLAM 2 MG/2 ML (VERSED) VIAL ONE (07:38)
--- NOTE | 2020-04-07 07:38 | Ophthalmologist Pre-Op Note ---
Pre-Operative Progress Note H&P Reviewed The H&P was reviewed, patient examined and no changes noted. Date H&P Reviewed: Apr 07, 2020 Time H&P Reviewed: 07:38 Pre-Op Dx Cataract, Right Eye DIANDRA TINSLEY MD Apr 07, 2020 07:38
--- NOTE | 2020-04-07 07:59 | Ophthalmology Operative Report ---
Cataract removal/placement IOL PREOPERATIVE DIAGNOSIS: Cataract Right Eye POSTOPERATIVE DIAGNOSIS: Cataract Right Eye PROCEDURE: Cataract removal and placement of posterior chamber implant, right eye SURGEON: Rocky Tinsley ANESTHESIA: Topical with sedation COMPLICATIONS: None ESTIMATED BLOOD LOSS: Minimal DESCRIPTION OF PROCEDURE: After proper informed consent was obtained, the patient, a 64 female, was taken to the Operating Room and the right eye was anesthetized with tetracaine. The right eye was then prepped and draped in the usual manner. A wire lid speculum was placed. A paracentesis was made at the left hand position. Preservative free lidocaine was injected into the anterior chamber followed by viscoelastic. A clear corneal incision was made in the temporal position. A capsulorrhexis was preformed and the central nuclear and cortical material were removed. The posterior capsule was polished and Scar 16.5 AU00T0 IOL was placed into the capsular bag. The residual viscoelastic was aspirated and balanced saline solution was injected into the anterior chamber. Moxifloxacin was injected into the anterior chamber. The wound was checked and found to be water tight. The patient tolerated the procedure well without complications. ROCKY TINSLEY MD Apr 07, 2020 07:59
[2020-04-07 08:10] VITALS: BP 130/67
--- NOTE | 2020-04-10 07:16 | Anesthesia-General Post-Op ---
MAC Significant Intra-Op Events Notes late entry 04/07/20 Patient Condition Mental Status/LOC: Same as Preop Cardiovascular: Satisfactory Nausea/Vomiting: Absent Respiratory: Satisfactory Pain: Controlled Complications: Absent Post Op Complications Complications None Follow Up Care/Instructions Patient Instructions None needed. Anesthesiology Discharge Order Discharge Order Patient is doing well, no complaints, stable vital signs, no apparent adverse anesthesia problems. No complications reported per nursing. JARAD RUIZ CRNA Apr 10, 2020 07:16
== END 2020-04-07 08:11 | disposition home or self-care (01) ==
LOC: SDC 06:06
PROVIDERS: ATTEND Specialist
DX: H25.11 Age-related nuclear cataract, right eye (principal); F41.9 Anxiety disorder, unspecified; M19.90 Unspecified osteoarthritis, unspecified site; Z79.82 Long term (current) use of aspirin; Z79.899 Other long term (current) drug therapy; Z90.710 Acquired absence of both cervix and uterus; Z87.891 Personal history of nicotine dependence; Z80.0 Family history of malignant neoplasm of digestive organs
CPT/HCPCS: 66982; V2632

== ENCOUNTER → 2020-04-14 | Outpatient (CLI) | payer MEDICARE, OTHER ==
[~2020-04-14] MED LIST changes: +RT-ALBUTEROL SULF 2.5 MG/3 ML PRE-MIX VIAL INH ONE
== END ==
LOC: RT 07:50
PROVIDERS: ATTEND Internal Medicine Cardiovascular Disease
DX: E78.5 Hyperlipidemia, unspecified (principal); I77.89 Other specified disorders of arteries and arterioles; I50.33 Acute on chronic diastolic (congestive) heart failure; Z87.891 Personal history of nicotine dependence
CPT/HCPCS: 94060; 94726; 94729

== ENCOUNTER → 2020-06-12 | Outpatient (CLI) | payer MEDICARE, OTHER ==
[~2020-06-12] MED LIST changes: -RT-ALBUTEROL SULF 2.5 MG/3 ML PRE-MIX VIAL INH ONE
--- NOTE | 2020-06-12 13:21 | Diagnostic Imaging Report ---
PROCEDURE: CT abdomen and pelvis without contrast. TECHNIQUE: Multiple contiguous axial images were obtained through the abdomen and pelvis without the use of intravenous contrast. Auto Exposure Controls were utilized during the CT exam to meet ALARA standards for radiation dose reduction. INDICATION: Abdominal pain in left lower quadrant as well as weight gain. COMPARISON: No prior studies are available for comparison. FINDINGS: The lung bases are clear. The liver and gallbladder are unremarkable. No biliary ductal dilatation is seen. The pancreas and spleen are unremarkable. No adrenal mass is detected. 19 mm low-density lesion in right kidney is noted, likely a small cyst. No calculi or hydronephrosis is identified. Aorta is heavily calcified but nonaneurysmal. Small and large bowel loops are normal caliber. There is no obstruction. There is mild diverticulosis of the sigmoid colon but no evidence of acute diverticulitis. The bladder is unremarkable. Uterus appears to be surgically absent. No abdominal or pelvic lymphadenopathy is seen. Bony structures are nonacute. IMPRESSION: 1. Right renal cyst. 2. Uncomplicated diverticulosis. 1. No acute feature in the abdomen or pelvis is identified. Dictated by: Dictated on workstation # [id number]
== END ==
LOC: RAD 13:15
PROVIDERS: ATTEND Internal Medicine
DX: N28.1 Cyst of kidney, acquired (principal); K57.30 Diverticulosis of large intestine without perforation or abscess without bleeding; R63.5 Abnormal weight gain
CPT/HCPCS: 74176

== ENCOUNTER → 2020-12-08 | Outpatient (CLI) | payer MEDICARE, OTHER ==
[~2020-12-08] MED LIST changes: +CATHETER FLUSH 10 ML SYR IV PRN; +HOLD METFORMIN - RECEIVED CONTRAST 20 ML VIAL IV SCH; +IOHEXOL 350 MG/ML 100 ML (OMNIPAQUE 350) VIAL IV ONE; -LISI10TA2 PO; +LISI10TA25 PO; +NS 100 ML (IVPB) BAG IV ONE
[2020-12-08 08:29] LABS: CREATININE SERUM 0.78 MG/DL (0.60-1.30); GFR ESTIMATED > 60
[2020-12-08 08:30] LABS: BUN/CREATININE RATIO 13
--- NOTE | 2020-12-08 09:29 | Diagnostic Imaging Report ---
EXAMINATION: CT Chest with intravenous contrast. TECHNIQUE: Multiple contiguous axial images were obtained through the chest after the uneventful administration of intravenous contrast. All CT scans use one or more of the following dose optimizing techniques: automated exposure control, MA and/or KvP adjustment based on a patient size and exam type, or iterative reconstruction. HISTORY: COPD and shortness of breath. COMPARISON: Chest radiograph 01/13/2020 FINDINGS: Thyroid: There are multiple subcentimeter nodules within the thyroid gland which do not require followup given the lesion size and patient age. Mediastinum: Heart size is normal without significant pericardial effusion. Calcifications of the aorta and coronary vessels. Thoracic aorta is normal in caliber. No suspicious lymphadenopathy. Lungs and airways: Background emphysematous changes of the lungs. No consolidation, pleural effusion, or pneumothorax. There is subpleural reticulation within the lower lungs. There are scattered calcified granulomas. No suspicious pulmonary nodule. The airways are normal. Upper abdomen: Partially visualized renal cysts which requires no followup. Musculoskeletal: Degenerative changes of the spine without suspicious osseous lesion or compression fracture. IMPRESSION: 1. No acute abnormality in the chest. 2. Findings of emphysema with subpleural reticulation which could be secondary to atelectasis or early interstitial lung disease. Dictated by: Dictated on workstation # [id number]
== END ==
LOC: RAD 09:15
PROVIDERS: ATTEND Internal Medicine Critical Care Medicine
DX: Z13.83 Encounter for screening for respiratory disorder NEC (principal); J43.9 Emphysema, unspecified
CPT/HCPCS: 36415; 71260; 82565; 84520

== ENCOUNTER → 2020-12-18 | Outpatient (CLI) | payer MEDICARE, OTHER ==
[~2020-12-18] MED LIST changes: -CATHETER FLUSH 10 ML SYR IV PRN; -HOLD METFORMIN - RECEIVED CONTRAST 20 ML VIAL IV SCH; -IOHEXOL 350 MG/ML 100 ML (OMNIPAQUE 350) VIAL IV ONE; -NS 100 ML (IVPB) BAG IV ONE
== END ==
LOC: LABNPT 08:29
PROVIDERS: ATTEND Internal Medicine Critical Care Medicine
DX: Z01.89 Encounter for other specified special examinations (principal); Z20.822 Contact with and (suspected) exposure to COVID-19
CPT/HCPCS: 87635

== ENCOUNTER 2020-12-19 18:48 | Outpatient (CLI) | payer MEDICARE, OTHER | END 2020-12-20 06:40 | disposition home or self-care (01) | LOC: SLEEP 18:48 | PROVIDERS: ATTEND Internal Medicine Critical Care Medicine | DX: G47.30 Sleep apnea, unspecified (principal); G47.10 Hypersomnia, unspecified; G47.50 Parasomnia, unspecified; Z87.891 Personal history of nicotine dependence | CPT/HCPCS: 95810 ==

== ENCOUNTER → 2021-06-26 | Outpatient (CLI) | payer MEDICARE, OTHER ==
[~2021-06-26] MED LIST changes: +CATHETER FLUSH 10 ML SYR IV PRN; +HOLD METFORMIN - RECEIVED CONTRAST 20 ML VIAL IV SCH; +IOHEXOL 350 MG/ML 100 ML (OMNIPAQUE 350) VIAL IV ONE; +NS 100 ML (IVPB) BAG IV ONE
--- NOTE | 2021-06-26 08:34 | Diagnostic Imaging Report ---
EXAMINATION: CT angiography of the chest. TECHNIQUE: Contrast enhanced thin section helical images were obtained through the chest with intravenous contrast timed for the optimal opacification of the arterial structures per CTA protocol. Post-processing, reconstructions and interpretation of angiographic images of the vessels was performed. 3D MIP reconstructions were performed and reviewed. All CT scans use one or more of the following dose optimizing techniques: automated exposure control, MA and/or KvP adjustment based on a patient size and exam type, or iterative reconstruction. HISTORY: Short of breath COMPARISON: 12/08/2020 FINDINGS: There is no pulmonary embolism. There is mild septal line thickening and groundglass consistent with pulmonary edema. No pleural effusion. No pneumothorax. No suspicious nodules. There is no axillary or supraclavicular lymphadenopathy. There is no mediastinal lymphadenopathy. Heart size is normal. There are no coronary artery calcifications. No pericardial effusion. Aorta is normal in caliber. Limited views of the upper abdomen show small hiatal hernia. There are few prominent paraesophageal lymph nodes that remain subcentimeter, they are increased in size from prior exam There are no suspicious osseus lesions. IMPRESSION: 1. No pulmonary embolism. 2. Mild edema. 3. Prominent paraesophageal lymph nodes and a small hiatal hernia consider endoscopy to evaluate for underlying esophagitis or malignancy as lymph nodes are more prominent than on the prior exam. Dictated by: Dictated on workstation # [id number]
== END ==
LOC: RAD 08:15
PROVIDERS: ATTEND Internal Medicine
DX: J81.1 Chronic pulmonary edema (principal); K44.9 Diaphragmatic hernia without obstruction or gangrene
CPT/HCPCS: 71275

== ENCOUNTER 2021-07-21 15:48 | Emergency (ER) | payer MEDICARE, OTHER ==
[~2021-07-21 15:48] MED LIST changes: -CATHETER FLUSH 10 ML SYR IV PRN; -HOLD METFORMIN - RECEIVED CONTRAST 20 ML VIAL IV SCH; -IOHEXOL 350 MG/ML 100 ML (OMNIPAQUE 350) VIAL IV ONE; -NS 100 ML (IVPB) BAG IV ONE
--- NOTE | 2021-07-21 16:06 | ED Upper Extremity ---
General Chief Complaint: Upper Extremity Stated Complaint: FALL/LEFT WRIST INJURY Source: patient Exam Limitations: no limitations History of Present Illness Date Seen by Provider: Jul 21, 2021 Time Seen by Provider: 16:04 Initial Comments fell out of the truck bed landing on her left wrist. This occurred just prior to arrival. She now has left wrist pain. No left elbow or forearm pain no hand pain. No tingling in the fingers. No pain in the shoulder. Did not hit her head and no neck pain. No injury or pain elsewhere. Onset: this evening Severity: moderate Pain/Injury Location: left wrist Method of Injury: fell Modifying Factors: Worse With Movement Allergies and Home Medications Allergies Coded Allergies: No Known Drug Allergies (Unverified , 03/20/20) Patient Home Medication List Home Medication List Reviewed: Yes Fish Oil/Dha/Epa (Fish Oil 1,200 mg Fish Oil) 1 Each Capsule, 1 EACH PO DAILY, (Reported) Entered as Reported by: ANDREA MYERS on 03/20/20 1041 Fluoxetine HCl (Prozac) 20 Mg Capsule, 20 MG PO DAILY, (Reported) Entered as Reported by: ANDREA MYERS on 03/20/20 1043 Hydrocodone/Acetaminophen (Hydrocodone-Acetamin 5-325 mg) 1 Each Tablet, 1 TAB PO Q6H PRN for PAIN-MODERATE (5-7) Prescribed by: TERI BAGLEY on 07/21/21 1634 Lisinopril (Lisinopril) 10 Mg Tablet, 10 MG PO DAILY, (Reported) Entered as Reported by: ANDREA MYERS on 03/20/20 1041 Lovastatin (Lovastatin) 20 Mg Tablet, 20 MG PO DAILY, (Reported) Entered as Reported by: ANDREA MYERS on 03/20/20 1041 Meloxicam (Meloxicam) 7.5 Mg Tablet, 7.5 MG PO DAILY, (Reported) Entered as Reported by: ANDREA MYERS on 03/20/20 1041 Multivitamin (Multivitamin) 1 Each Tablet, 1 EACH PO DAILY, (Reported) Entered as Reported by: ANDREA MYERS on 03/20/20 1041 Review of Systems Constitutional: see HPI EENTM: see HPI Respiratory: no symptoms reported Cardiovascular: no symptoms reported Genitourinary: no symptoms reported Musculoskeletal: see HPI Skin: no symptoms reported Psychiatric/Neurological: No Symptoms Reported Past Gbfqzur-Brrcgh-Tljuuw Hx Immunizations Up To Date Tetanus Booster (TDap): Unknown Past Medical History Respiratory: No Currently Using CPAP: No Currently Using BIPAP: No Cardiac: No Neurological: No Genitourinary: No Gastrointestinal: No Cancer: No Physical Exam Vital Signs Capillary Refill : Height, Weight, BMI Height: '" Weight: lbs. oz. kg; 28.95 BMI Method: General Appearance: WD/WN, no apparent distress HEENT: PERRL/EOMI, normal ENT inspection Neck: non-tender, full range of motion Respiratory: no respiratory distress, no accessory muscle use Gastrointestinal: normal bowel sounds, non tender, soft Shoulder: normal inspection, non-tender Elbow/Forearm: normal inspection, non-tender Wrist: Yes pain, Yes soft tissue tenderness Hand: normal inspection, non-tender Neurologic/Psychiatric: alert, normal mood/affect, oriented x 3 Skin: normal color, warm/dry Progress/Results/Core Measures Results/Orders My Orders Orders - TERI BAGLEY APRN Wrist, Left, 3 Views Or More (07/21/21 16:00) Hydrocodone/Apap 5/325 Tablet (Lortab 5 (07/21/21 16:15) Medications Given in ED Current Medications Medications Dose Ordered Sig/Edmundo Route Start Time Stop Time Status Last Admin Dose Admin Acetaminophen/ Hydrocodone Bitart 1 ea ONCE ONCE PO 07/21/21 16:15 07/21/21 16:16 DC 07/21/21 16:06 1 EA Departure Communication (Admissions) Family Conversation Patient placed in an ulnar gutter style splint using 3 inch Ortho-Glass. Also given a sling. NAME: [facility] REC#: [id number] PT STATUS: REG ER : 1955 PHYSICIAN: TERI BAGLEY APRN ADMIT DATE: 07/21/21/ER Signed Date of Exam:07/21/21 WRIST, LEFT, 3 VIEWS OR MORE EXAM: Left wrist radiographs. EXAM DATE: 07/21/2021. COMPARISON: None. HISTORY: Fall onto left wrist with pain. TECHNIQUE: 3 views of the left wrist. FINDINGS: There is an acute, minimally displaced fracture of the ulnar styloid. There is a complex, displaced fracture of the distal left radius. There is at least 4 mm of lateral and palmar displacement of the fracture fragments. The joint spaces are preserved. There is soft tissue swelling about the left wrist. IMPRESSION: Acute displaced fractures of the ulnar styloid and distal left radius. Dictated by: Dictated on workstation # [id number] Dict: 07/21/211619 Trans: 07/21/211626 [facility] [id number] Interpreted by: KEILY LUI DO Electronically signed by: KEILY LUI DO 07/21/211626 Impression Primary Impression: Left wrist fracture Disposition: HOME, SELF-CARE Condition: Stable Departure-Patient Inst. Decision time for Depature: 16:27 Referrals: SALVATORE DIMAS MD, WILLIAM J DO (PCP/Family) Primary Care Physician FAY NICOLE MD Patient Instructions: Wrist Fracture (DC) Add. Discharge Instructions: 1. Wear the splint at all times until you follow-up with orthopedics. Call orthopedics of your choosing on Friday to make an appointment to be seen for follow-up. Keep the splint clean and dry. Elevate the wrist is much as possible to help with swelling and subsequently the pain. Take the pain medication as directed. All discharge instructions reviewed with patient and/or family. Voiced understanding. Scripts Hydrocodone/Acetaminophen (Hydrocodone-Acetamin 5-325 mg) 1 Each Tablet 1 TAB PO Q6H PRN for PAIN-MODERATE (5-7), #14 TAB Prov: TERI BAGLEY APRN 07/21/21 TERI BAGLEY APRN Jul 21, 2021 16:06
[2021-07-21] MEDS ORDERED: HYDROcodone/APAP 5 MG/325 MG (LORTAB) TAB PO ONE (16:15)
--- NOTE | 2021-07-21 16:25 | Diagnostic Imaging Report ---
EXAM: Left wrist radiographs. EXAM DATE: 07/21/2021. COMPARISON: None. HISTORY: Fall onto left wrist with pain. TECHNIQUE: 3 views of the left wrist. FINDINGS: There is an acute, minimally displaced fracture of the ulnar styloid. There is a complex, displaced fracture of the distal left radius. There is at least 4 mm of lateral and palmar displacement of the fracture fragments. The joint spaces are preserved. There is soft tissue swelling about the left wrist. IMPRESSION: Acute displaced fractures of the ulnar styloid and distal left radius. Dictated by: Dictated on workstation # [id number]
[2021-07-21] MEDS ORDERED: ACHD5005 PO (16:34)
[2021-07-21 16:54] VITALS: BP 134/86
== END 2021-07-21 16:54 | disposition home or self-care (01) ==
LOC: EDUNIT# 15:48 → ER 15:51
DX: S52.612A Displaced fracture of left ulna styloid process, initial encounter for closed fracture (principal); S52.502A Unspecified fracture of the lower end of left radius, initial encounter for closed fracture; W06.XXXA Fall from bed, initial encounter; Y92.812 Truck as the place of occurrence of the external cause
CPT/HCPCS: 29125; 73110

== ENCOUNTER → 2021-07-24 | Outpatient (CLI) | payer MEDICARE, OTHER ==
[~2021-07-24] MED LIST changes: +ACHD5005 PO; +CLON0.5T4 PO; +FLUT1DIS26 IH; +FURO-125 PO; +OXYC5CAP18 PO; +POTA10TA36 PO; +VITAMIN C COMPLEX PO
== END ==
LOC: ORTHO 11:30
PROVIDERS: ATTEND Orthopaedic Surgery
DX: Z47.89 Encounter for other orthopedic aftercare (principal)
CPT/HCPCS: 99202

== ENCOUNTER 2021-07-25 05:42 | Outpatient (CLI) | payer MEDICARE, OTHER ==
[~2021-07-25] VITALS: Ht 162.6 cm; Wt 81.6 kg
[~2021-07-25 05:42] MED LIST changes: -CLON0.5T4 PO; -FLUT1DIS26 IH; -FURO-125 PO; -OXYC5CAP18 PO; -POTA10TA36 PO; -VITAMIN C COMPLEX PO
[2021-07-25] MEDS ORDERED: CLON0.5T4 PO (11:25)
[2021-07-25] MEDS ORDERED: VITAMIN C COMPLEX PO (11:25)
[2021-07-25] MEDS ORDERED: FLUT1DIS26 IH (11:25)
[2021-07-25] MEDS ORDERED: POTA10TA36 PO (11:25)
[2021-07-25] MEDS ORDERED: FURO-125 PO (11:25)
== END 2021-07-25 11:47 | disposition home or self-care (01) ==
LOC: PREOP 05:42
PROVIDERS: ATTEND Orthopaedic Surgery
DX: Z01.818 Encounter for other preprocedural examination (principal)

== ENCOUNTER 2021-07-27 07:30 | Day surgery (SDC) | payer MEDICARE, OTHER ==
[2021-07-27] VITALS (11 sets, daily range): BP systolic 118–150; BP diastolic 64–85
[~2021-07-27] VITALS: Ht 162.6 cm; Wt 81.6 kg
[~2021-07-27 07:30] MED LIST changes: +CLON0.5T4 PO; +FLUT1DIS26 IH; +FURO-125 PO; +POTA10TA36 PO; +VITAMIN C COMPLEX PO
[2021-07-27] MEDS ORDERED: ceFAZolin 2 GM IV Premixed 50 ML IV ONE (07:45)
[2021-07-27] MEDS ORDERED: NEO/POLY/BAC (NEOSPORIN) OINT 15 GM TUBE ONE (07:52)
[2021-07-27] MEDS ORDERED: BUPIVACAINE 0.25% 30 ML (SENSORCAINE) VIAL ONE (07:53)
[2021-07-27] MEDS: LACTATED RINGERS 1,000 ML IV PRN ×2 (08:00→09:20)
[2021-07-27] MEDS ORDERED: MIDAZOLAM 2 MG/2 ML (VERSED) VIAL ONE (08:42)
[2021-07-27] MEDS ORDERED: fentaNYL INJ 100 MCG/2 ML AMP ONE ×2 (08:42→11:08)
[2021-07-27] MEDS ORDERED: proPOfol 200 MG/20 ML (DIPRIVAN) VIAL IV ONE (09:02)
[2021-07-27] MEDS ORDERED: ONDANSETRON 4 MG/2 ML (SDV) Z0FRAN ONE (09:02)
[2021-07-27] MEDS ORDERED: LIDOCAINE PF 2% 5 ML (XYLOCAINE) VIAL ONE (09:02)
[2021-07-27] MEDS ORDERED: SEVOFLURANE (ULTANE) 15 ML INHAL SOLN ONE (10:28)
[2021-07-27] MEDS ORDERED: OXYC5CAP18 PO (10:29)
[2021-07-27] MEDS ORDERED: morphine INJ 10 MG/ML 1ML (SYR OR VIAL) ONE (10:36)
--- NOTE | 2021-07-27 10:36 | Operative Report - Ortho ---
Operative Report Surgeon (s)/Route Sales Trainee (s) Surgeon SALVATORE DIMAS MD Route Sales Trainee n/a Pre-Operative Diagnosis LEFT DISTAL RADIUS FRACTURE Post-Operative Diagnosis same Operative Report Date of Procedure: Jul 27, 2021 Name of Procedure Performed: Open Reduction and Internal Fixation of Left Distal Radius Fracture Description & Findings After obtaining informed consent and marking the patient in the preoperative holding area, the patient was taken to the operating room. General anesthesia was induced. Patient did receive IV antibiotics. Surgical timeout was taken. The left upper extremity was prepped and draped in the usual sterile fashion. Volar approach was utilized; the radial artery was protected. Pronator was reflected and the fracture was exposed. Provisional reduction was performed with traction, wrist flexion, and ulnar deviation. A Variax plate was selected and placed against the radius, positioned using C-arm, and a nonlocking screw was placed in the slot. Fracture was reduced to the plate. A nonlocking screw was then placed distally. Locking screws were then placed in the ulnar sided distal holes and the second row. Position of the hardware and reduction of the fracture were confirmed on the C-arm. The 2 radial styloid screws were then placed and both were locking. Position of these screws was confirmed. 2 locking screws were then placed in the diaphyseal portion of the plate. Final C-arm images were obtained and transferred to PACS. Wound was lavaged with normal saline. Subcutaneous layer was closed with 3-0 vicryl and skin was closed with 4-0 nylon. Site was injected with local anesthetic. Dressed with xeroform, 4x4s, geneva, webril, volar splint, and FAISAL wrap. Patient tolerated the procedure well and was stable to the recovery room. Anesthesia Type General Estimated Blood Loss Less than 15 mL Specimen(s) collected/removed None SALVATORE DIMAS MD Jul 27, 2021 10:36
--- NOTE | 2021-07-27 10:39 | Anesthesia-General Post-Op ---
General Patient Condition Mental Status/LOC: Same as Preop Cardiovascular: Satisfactory Nausea/Vomiting: Absent Respiratory: Satisfactory Pain: Controlled Complications: Absent Post Op Complications Complications None Follow Up Care/Instructions Patient Instructions None needed. Anesthesia/Patient Condition Patient Condition Patient is doing well, no complaints, stable vital signs, no apparent adverse anesthesia problems. No complications reported per nursing. AMI LAM CRNA Jul 27, 2021 10:39
[2021-07-27] MEDS ORDERED: morphine INJ 10 MG/ML 1ML (SYR OR VIAL) IVP ONE (10:45)
[2021-07-27] MEDS ORDERED: ONDANSETRON 4 MG/2 ML (SDV) Z0FRAN IVP PRN (10:45)
[2021-07-27] MEDS ORDERED: fentaNYL INJ 100 MCG/2 ML AMP IVP ONE (11:15)
--- NOTE | 2021-07-27 11:36 | Diagnostic Imaging Report ---
EXAMINATION: Fluoroscopy at 9:53 a.m. INDICATION: Wrist pain. Fluoroscopic assistance was provided for Dr. Cobb during his ORIF left wrist procedure. 27.9 seconds of fluoroscopy time was utilized. FINDINGS: AP and lateral spot films of the left wrist were received from the OR. The prior exam of 07/21/2021 did note an acute displaced fracture of the distal radius and of the ulnar styloid. In the interval since the prior study, an orthopedic plate and screw fixation device has been applied to the volar aspect of the distal radius. The orthopedic hardware seems to be in good position, and the main fracture fragments are in near-anatomic alignment. The avulsion fracture of the ulnar styloid seen previously is not well appreciated on this exam. IMPRESSION: Fluoroscopic assistance was provided for Dr. Cobb. Dictated on workstation # [id number]
[2021-07-27] MEDS ORDERED: oxyCODONE/APAP 5/325MG (PERCOCET 5) TABLET PO ONE (12:15)
[2021-07-27] MEDS ORDERED: oxyCODONE/APAP 5/325MG (PERCOCET 5) TABLET ONE (12:16)
== END 2021-07-27 12:45 | disposition home or self-care (01) ==
LOC: SDC 07:30
PROVIDERS: ATTEND Orthopaedic Surgery
DX: S52.502A Unspecified fracture of the lower end of left radius, initial encounter for closed fracture (principal); S52.532A Colles' fracture of left radius, initial encounter for closed fracture; I10 Essential (primary) hypertension; J44.9 Chronic obstructive pulmonary disease, unspecified; E66.9 Obesity, unspecified; E78.5 Hyperlipidemia, unspecified; F41.9 Anxiety disorder, unspecified; K21.9 Gastro-esophageal reflux disease without esophagitis; M19.90 Unspecified osteoarthritis, unspecified site; Z79.899 Other long term (current) drug therapy; Z79.891 Long term (current) use of opiate analgesic; Z99.81 Dependence on supplemental oxygen; Z87.891 Personal history of nicotine dependence; Z68.32 Body mass index [BMI] 32.0-32.9, adult; Z79.1 Long term (current) use of non-steroidal anti-inflammatories (NSAID); Z96.659 Presence of unspecified artificial knee joint; Z98.890 Other specified postprocedural states
CPT/HCPCS: 76000; 87081

== ENCOUNTER → 2021-08-09 | Outpatient (CLI) | payer MEDICARE, OTHER ==
[~2021-08-09] MED LIST changes: +OXYC5CAP18 PO
== END ==
LOC: ORTHO 08:40
PROVIDERS: ATTEND Orthopaedic Surgery
DX: S69.92XD Unspecified injury of left wrist, hand and finger(s), subsequent encounter (principal); W06.XXXD Fall from bed, subsequent encounter

== ENCOUNTER → 2021-08-30 | Outpatient (CLI) | payer MEDICARE, OTHER ==
[~2021-08-30] MED LIST changes: -POTA10TA36 PO; +POTA10TA37 PO
--- NOTE | 2021-08-30 11:24 | Diagnostic Imaging Report ---
Indication: Fall. TIME OF EXAM: 9:05am. Correlation is made with prior left wrist radiograph from 07/21/2021. Since prior study patient's undergone left wrist surgery. There is a volar plate and numerous screws transfixing the comminuted intra-articular distal radius fracture. The hardware appears to be intact without fracture or loosening. There is some healing of the distal radius fractures. There is a fracture of the ulnar styloid with fracture line remaining clearly visible. Carpus and metacarpals are intact. IMPRESSION: Postoperative changes of ORIF involving comminuted intra-articular distal radius fracture. Some healing has occurred but fracture lines do remain partly visible. The ulnar styloid fracture remains clearly visible. Dictated by: Dictated on workstation # [id number]
== END ==
LOC: ORTHO 08:48
PROVIDERS: ATTEND Orthopaedic Surgery
DX: Z09 Encounter for follow-up examination after completed treatment for conditions other than malignant neoplasm (principal); S52.502D Unspecified fracture of the lower end of left radius, subsequent encounter for closed fracture with routine healing; S52.612D Displaced fracture of left ulna styloid process, subsequent encounter for closed fracture with routine healing; Z96.698 Presence of other orthopedic joint implants; Z98.890 Other specified postprocedural states; W19.XXXD Unspecified fall, subsequent encounter
CPT/HCPCS: 73110

== ENCOUNTER 2021-09-27 15:54 | Outpatient (RCR) | payer MEDICARE, OTHER | END 2021-09-28 | disposition home or self-care (01) | PROVIDERS: ATTEND Orthopaedic Surgery | DX: Z09 Encounter for follow-up examination after completed treatment for conditions other than malignant neoplasm (principal); Z96.698 Presence of other orthopedic joint implants ==

== ENCOUNTER → 2021-09-27 | Outpatient (CLI) | payer MEDICARE, OTHER ==
--- NOTE | 2021-09-27 09:00 | Diagnostic Imaging Report ---
INDICATION: Left wrist injury. AP, oblique and lateral views of left wrist are obtained with comparison made to study of 08/30/2021. Dorsal fixation plate is seen along the distal aspect of the radius similar to the previous study. Alignment is stable with mild displacement of distal radial fracture fragment. There does appear to be mild irregularity of the articular surface of the distal radius as well. Mildly displaced ulnar styloid process fracture has shown mild increase in displacement. No new abnormality is seen. IMPRESSION: Stable appearance of mildly displaced intra-articular fracture of distal radius with mild overall increase in displacement of ulnar styloid process fracture. Dictated by: Dictated on workstation # [id number]
== END ==
LOC: ORTHO 08:20
PROVIDERS: ATTEND Orthopaedic Surgery
DX: S69.92XA Unspecified injury of left wrist, hand and finger(s), initial encounter (principal); X58.XXXA Exposure to other specified factors, initial encounter
CPT/HCPCS: 73110

== ENCOUNTER 2021-10-04 10:16 | Outpatient (RCR) | payer MEDICARE, OTHER | END 2021-10-04 13:20 | disposition home or self-care (01) | PROVIDERS: ATTEND Orthopaedic Surgery | DX: Z09 Encounter for follow-up examination after completed treatment for conditions other than malignant neoplasm (principal); Z96.698 Presence of other orthopedic joint implants ==

== ENCOUNTER → 2021-10-25 | Outpatient (CLI) | payer MEDICARE, OTHER ==
--- NOTE | 2021-10-25 08:57 | Diagnostic Imaging Report ---
INDICATION: Postop left wrist. TIME OF EXAM: 8:34 AM Correlation is made with prior radiograph from 09/27/2021. FINDINGS: Volar plate and numerous screws again transfix the distal radius intra-articular fracture. Hardware appears to be intact. No fracture or loosening is seen. Ulnar styloid fracture is unchanged. Carpus is unremarkable. Triscaphe and 1st MC joint degenerative changes are noted. Metacarpals are intact. IMPRESSION: Stable postoperative changes left wrist when compared with exam from 09/27/2021. Dictated by: Dictated on workstation # [id number]
== END ==
LOC: ORTHO 08:25
PROVIDERS: ATTEND Orthopaedic Surgery
DX: Z09 Encounter for follow-up examination after completed treatment for conditions other than malignant neoplasm (principal); Z98.890 Other specified postprocedural states
CPT/HCPCS: 73110

== ENCOUNTER → 2022-02-11 | Outpatient (CLI) | payer MEDICARE, OTHER ==
--- NOTE | 2022-02-11 12:33 | Diagnostic Imaging Report ---
INDICATION: Chronic back pain. TIME OF EXAM: 10:39 a.m. FINDINGS: Curvature of the lumbar spine is normal. There is minimal anterolisthesis of L4 on L5. Vertebral body heights are maintained without evidence of acute compression fracture. There is some generalized degenerative disc disease with variable disc space narrowing and marginal spurring. Abdominal aorta is calcified. There is lower lumbar facet arthropathy. IMPRESSION: Lumbar spondylosis and L4-L5 spondylolisthesis. No acute bony abnormality is detected. Dictated by: Dictated on workstation # [id number]
== END ==
LOC: RAD 10:16
PROVIDERS: ATTEND Registered Nurse
DX: M47.26 Other spondylosis with radiculopathy, lumbar region (principal); M43.16 Spondylolisthesis, lumbar region
CPT/HCPCS: 72100

== ENCOUNTER 2022-11-16 11:46 | Emergency (ER) | payer MEDICARE, OTHER ==
[~2022-11-16] VITALS: Ht 162.5 cm; Wt 81.6 kg
[~2022-11-16 11:46] MED LIST changes: +POTA-177 PO; -POTA10TA37 PO
[2022-11-16] MEDS ORDERED: HYDROcodone/APAP 7.5 MG/325 MG (LORTAB, LORCET PLUS) TABLET PO STA (12:14)
--- NOTE | 2022-11-16 12:19 | ED Lower Extremity ---
General Stated Complaint: LT KNEE PAIN Source: patient Exam Limitations: no limitations History of Present Illness Date Seen by Provider: Nov 16, 2022 Time Seen by Provider: 12:15 Initial Comments Patient is a 67-year-old female who presents ED with left knee pain. She states 30 minutes ago she was standing up watching the birds outside when she twist and turn felt a pop of the left knee. She fell backwards into the couch. She states she is not able to stand or bear weight on the left knee. She reports swelling. History of arthroscopy. Denies any distal numbness and tingling. Pain worse with any type of movement. Denies fever, chills, chest pain, shortness of breath, cough, headache, dizziness. Denies taking anything for pa in. Denies the knee wanting to give out. She does report some dull achy pain and limp of the left knee this week. Allergies and Home Medications Allergies Coded Allergies: No Known Drug Allergies (Unverified , 03/20/20) Patient Home Medication List Home Medication List Reviewed: Yes Clonazepam (Clonazepam) 0.5 Mg Tablet, 0.5 MG PO BID, (Reported) Entered as Reported by: AIRAM CAMILO on 07/25/21 1125 Fish Oil/Dha/Epa (Fish Oil 1,200 mg Fish Oil) 1 Each Capsule, 1 EACH PO DAILY, (Reported) Entered as Reported by: ANDREA MYERS on 03/20/20 1041 Fluticasone/Salmeterol (Advair 250-50 Diskus) 1 Each Blst.w.dev, 1 EACH IH BID, (Reported) Entered as Reported by: AIRAM CAMILO on 07/25/21 1125 Furosemide (Lasix) 20 Mg Tablet, 10 MG PO DAILY, (Reported) Entered as Reported by: AIRAM CAMILO on 07/25/21 1125 Hydrocodone/Acetaminophen (Hydrocodone-Acetamin 5-325 mg) 5 Mg-325 Mg Tablet, 1 TAB PO Q4H PRN for PAIN-MODERATE (5-7) Prescribed by: KAIT CRUZ on 11/16/22 1257 Lovastatin (Lovastatin) 20 Mg Tablet, 20 MG PO DAILY, (Reported) Entered as Reported by: ANDREA MYERS on 03/20/20 1041 Multivitamin (Multivitamin) 1 Each Tablet, 1 EACH PO DAILY, (Reported) Entered as Reported by: ANDREA MYERS on 03/20/20 1041 Oxycodone HCl (Oxycodone HCl) 5 Mg Capsule, 5 MG PO Q4H Prescribed by: SALVATORE DIMAS MD on 07/27/21 1029 Potassium Chloride (Potassium Chloride) 10 Meq Tab.er.prt, 10 MEQ PO DAILY, (Reported) Entered as Reported by: AIRAM CAMILO on 07/25/21 1125 [Vitamin C Complex] , 1 EACH PO DAILY, (Reported) Entered as Reported by: AIRAM CAMILO on 07/25/21 1125 Review of Systems Constitutional: No chills, No diaphoresis, No malaise, No weakness EENTM: No ear pain, No double vision, No mouth pain, No mouth swelling, No throat pain, No throat swelling Respiratory: No cough Cardiovascular: No chest pain, No edema Gastrointestinal: No abdominal pain, No diarrhea, No nausea, No vomiting Genitourinary: No decreased output, No discharge Musculoskeletal: No back pain; joint pain, joint swelling Skin: No change in color, No change in hair/nails All Other Systems Reviewed Negative Unless Noted: Yes Past Ceqmzpm-Kfoqyw-Ypvjgv Hx Immunizations Up To Date Tetanus Booster (TDap): Unknown First/Initial COVID19 Vaccinat: NOVEMBER 2020 Second COVID19 Vaccination Gregory: DECEMBER 2020 Third COVID19 Vaccination Date: NOVEMBER 2020 Seasonal Allergies Seasonal Allergies: No Past Medical History Surgery/Hospitalization HX: HYSTERECTOMY Surgeries: Yes (HYST,SHOULDER,L KNEE SCOPE) Hysterectomy, Orthopedic Respiratory: Yes (02 2L AT HS ) COPD, Emphysema Currently Using CPAP: No Currently Using BIPAP: No Cardiac: Yes High Cholesterol, Hypertension 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 oz. kg; 30.86 BMI Method: General Appearance: WD/WN, no apparent distress HEENT: PERRL/EOMI, normal ENT inspection, TMs normal, pharynx normal Neck: non-tender, full range of motion, supple, normal inspection Cardiovascular: regular rate, rhythm, no edema, no gallop, no JVD Respiratory: chest non-tender, lungs clear, normal breath sounds, no respiratory distress, no accessory muscle use Gastrointestinal: normal bowel sounds, non tender, soft, no organomegaly Back: normal inspection, no CVA tenderness Hips: bilateral hip non-tender, bilateral hip normal inspection, bilateral hip normal range of motion Knees: left knee pain (Tenderness anterior and lateral compartment.), left knee soft tissue tenderness, left knee swelling, left knee other (Decrease extension to 160 degrees with flexion to 90 degrees. Discomfort with Vince test. No laxity or pain with valgus or varus stress. Discomfort with anterior drawer test without significant laxity. 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 (11/16/22 12:14) Vital Signs/I&O 11/16/22 11/16/22 12:10 13:06 Temp 36.9 Pulse 96 96 Resp 20 20 B/P (MAP) 143/86 (105) 143/86 Pulse Ox 97 97 O2 Delivery Room Air Room Air Departure Communication (PCP) X-ray of the left knee negative for fracture, dislocation. Mild arthritic changes. Due to the mechanism of injury concerning for meniscus versus ligament injury. Assessment was limited secondary to significant pain with any type of movement. She was given a dose of pain medication with some improvement. Ice was applied. Discussed crutches, knee brace and orthopedic follow-up in 7 to 14 days for reevaluation. She states she has a walker at home and would rather use a walker. Will discharge with pain medication as needed. Recommend ibuprofen to help with the swelling. Ice for the next 3 to 4 days. Recommend knee brace for support. Discussed range of motion exercises. Return precaution were discussed with patient. Impression Primary Impression: Knee pain Disposition: HOME, SELF-CARE Condition: Stable Departure-Patient Inst. Decision time for Depature: 12:19 Referrals: SALVATORE DIMAS MD, WILLIAM J DO (PCP/Family) Primary Care Physician FAY NICOLE MD Patient Instructions: Knee Pain Scripts Hydrocodone/Acetaminophen (Hydrocodone-Acetamin 5-325 mg) 5 Mg-325 Mg Tablet 1 TAB PO Q4H PRN for PAIN-MODERATE (5-7), #15 TAB Prov: MARQUSIE VILLAFUERTE 11/16/22 MARQUISE VILLAFUERTE Nov 16, 2022 12:19
--- NOTE | 2022-11-16 12:43 | Diagnostic Imaging Report ---
INDICATION: Left knee pain. COMPARISON: None. DISCUSSION: Three views of the left knee were obtained. Mild degenerative disease noted. No fracture or dislocation. No effusion. Alignment is anatomic. Soft tissues are unremarkable. IMPRESSION: 1. Mild left knee degenerative disease. No acute abnormality. Dictated by: Dictated on workstation # [id number]
[2022-11-16] MEDS ORDERED: ACHD5005 PO (12:57)
[2022-11-16 13:06] VITALS: BP 143/86
== END 2022-11-16 13:06 | disposition home or self-care (01) ==
LOC: EDUNIT# 11:46 → ER 11:49
DX: M25.562 Pain in left knee (principal); J43.9 Emphysema, unspecified; Z99.81 Dependence on supplemental oxygen; X50.1XXA Overexertion from prolonged static or awkward postures, initial encounter; W22.03XA Walked into furniture, initial encounter
CPT/HCPCS: 73562

== ENCOUNTER → 2023-04-21 | Outpatient (CLI) | payer MEDICARE, OTHER ==
[~2023-04-21] MED LIST changes: +RT-ALBUTEROL SULF 2.5 MG/3 ML PRE-MIX VIAL INH ONE
== END ==
LOC: RT 08:00
PROVIDERS: ATTEND Nurse Practitioner Family
DX: J44.9 Chronic obstructive pulmonary disease, unspecified (principal); Z87.891 Personal history of nicotine dependence

== ENCOUNTER 2023-06-11 10:19 | Outpatient (CLI) | payer MEDICARE, OTHER ==
[~2023-06-11] VITALS: Ht 162.6 cm; Wt 76.5 kg
[~2023-06-11 10:19] MED LIST changes: -RT-ALBUTEROL SULF 2.5 MG/3 ML PRE-MIX VIAL INH ONE
[2023-06-11] MEDS ORDERED: MELO7.5T46 PO (10:42)
[2023-06-11] MEDS ORDERED: GABA300C PO (10:42)
[2023-06-11] MEDS ORDERED: ACET-2267 PO (10:42)
[2023-06-11] MEDS ORDERED: CLON1TAB13 PO (10:42)
[2023-06-11 10:43] VITALS: BP 125/68
--- NOTE | 2023-06-11 11:08 | Physical Therapy Pre-Op Eval ---
PT Pre-Surgical Assessment Type of Surgery Type of Surgery: left TKA Prior Level of Function Current Living Status: Alone Locomotion (Upon Admit): Quad Cane Distance: community distances PLOF DME: Quad Cane Subjective Home: Single Level Current Living Status: Alone Entry Into Home: Stairs Without Railing Steps Into Home: 1 Motor Control Motor Control: Motor Control WNL ROM left knee 3-130 degrees Strength Strength: Gen Weak,No Focal Deficit quads 3+/5 limited by pain Transfers Transfers (B, C, W/C) (FIM): 7 Gait Gait (FIM): 7 Gait Distance (FIM): 7 Distance: community distances Gait Assistive Device: Cane Single Point Full Weight Bearing Treatment Rendered Treatment: Patient instructed in assistive device, supported ambulation. Patient instructed in and given written program of ROM and strengthening exercises to be preformed post-op. Patient instructed in movement precautions where applicable. Patient demonstrates understandings of post-operative therapy protocol including gait pattern and exercise program. Pre-operative instruction completed; await physical therapy orders after surgery. Treatment Goal Met: Yes Assessment Goals Acheived: I Ambulation w/ FWW, Understands P-op Precaut, I Post-op Exercises Charges/GCodes Time In: 1045 Time Out: 1100 Total Billed Treatment Time: 15 Total Billed Treatment visit, Evaluation Low Complexity 15 min G Codes Necessary: No ALEXEY REILLY PT Jun 11, 2023 11:08
== END 2023-06-11 12:05 ==
LOC: PREOP 10:19
PROVIDERS: ATTEND Orthopaedic Surgery
DX: Z01.818 Encounter for other preprocedural examination (principal); M17.12 Unilateral primary osteoarthritis, left knee

== ENCOUNTER 2023-06-18 07:32 | Inpatient (IN) | payer MEDICARE, OTHER ==
--- NOTE | 2023-06-11 05:57 | HISTORY AND PHYSICAL ---
This will be for inpatient admission on 06/18/2023. The patient will require regular inpatient admission due to need for physical therapy and pain management. HISTORY OF PRESENT ILLNESS: The patient is a 67-year-old female with longstanding progressive left knee pain. Radiographs reveal severe medial and patellofemoral arthrosis. She has undergone treatment with injections as well as arthroscopy without relief. She reports marked activity limitations because of the knee. Due to failure to improve with conservative measures, the patient elected to proceed with surgical intervention. REVIEW OF SYSTEMS: No chest pain, no shortness of breath. No dysuria. PAST MEDICAL HISTORY: Hyperlipidemia, osteoarthritis, migraines, anxiety, mild COPD. PAST SURGICAL HISTORY: Left shoulder, knee, hysterectomy, herniorrhaphy. FAMILY HISTORY: No known family history. PRIMARY CARE PROVIDER: Dr. Zee. MEDICATIONS: Tylenol Arthritis, insulin, lovastatin, meloxicam, Wixela, clonazepam. ALLERGIES: Melons and diet soda. SOCIAL HISTORY: The patient is a former smoker. She drinks alcohol socially. PHYSICAL EXAMINATION: GENERAL: The patient is well-developed, well-nourished, in no acute distress. HEENT: Normocephalic, atraumatic. Pupils are equal, round and reactive to light. Oropharynx is clear. NECK: Supple. No lymphadenopathy. LUNGS: Clear to auscultation bilaterally. HEART: Regular rate and rhythm. ABDOMEN: Soft, nontender, nondistended. EXTREMITIES: The left knee demonstrates varus alignment. She ambulates with an antalgic gait. She is tender along her medial femoral condyle and has pain medially with Vince's. Range of motion is 0/2/120. IMPRESSION: Severe left knee osteoarthritis. PLAN: Left total knee arthroplasty. The risks, benefits, options, ramifications and recovery have been discussed at length with the patient. She understands and wishes to proceed. This will be for inpatient admission on 06/18/2023. Job ID: [id number] DocumentID: [id number] Dictated Date: 05/30/2023 13:32:22 Surgical Assistant Date: 05/30/2023 15:29:00 Dictated By: FAY NICOLE MD
[2023-06-11 12:06] LABS: BASOPHILS % (AUTO) 1 % (0-10); EOSINOPHILS # (AUTO) 0.1 10^3/uL (0.0-0.3); EOSINOPHILS % (AUTO) 1 % (0-10); HEMATOCRIT 43 % (35-52); HEMOGLOBIN 14.1 g/dL (11.5-16.0); LYMPHOCYTES # (AUTO) 1.5 10^3/uL (1.0-4.0); LYMPHOCYTES % (AUTO) 28 % (12-44); MEAN CORPUSCULAR HEMOGLOBIN 32 pg (25-34); MEAN CORPUSCULAR HGB CONC 33 g/dL (32-36); MEAN CORPUSCULAR VOLUME 98 fL (80-99); MEAN PLATELET VOLUME 9.2 fL (9.0-12.2); MONOCYTES # (AUTO) 0.4 10^3/uL (0.0-1.0); MONOCYTES % (AUTO) 7 % (0-12); NEUTROPHILS # (AUTO) 3.3 10^3/uL (1.8-7.8); NEUTROPHILS % (AUTO) 63 % (42-75); PLATELET COUNT 163 10^3/uL (130-400); WHITE BLOOD COUNT 5.3 10^3/uL (4.3-11.0)
[2023-06-11 12:17] LABS: INR 1.1 (0.8-1.4); PROTHROMBIN TIME PATIENT 13.9 SEC (12.2-14.7)
[2023-06-11 12:32] LABS: ALBUMIN 4.4 GM/DL (3.2-4.5); BILIRUBIN,TOTAL 0.7 MG/DL (0.1-1.0); CALCIUM 9.4 MG/DL (8.5-10.1); CREATININE SERUM 0.78 MG/DL (0.60-1.30)
[2023-06-11 12:33] LABS: CLARITY,URINE CLEAR; COLOR,URINE YELLOW
[2023-06-11 12:34] LABS: BILIRUBIN,URINE NEGATIVE (NEGATIVE); GLUCOSE, URINE (UA) NEGATIVE (NEGATIVE); KETONES,URINE NEGATIVE (NEGATIVE); LEUKOCYTE ESTERASE ,URINE NEGATIVE (NEGATIVE); NITRITE,URINE NEGATIVE (NEGATIVE); PROTEIN,URINE NEGATIVE (NEGATIVE)
[2023-06-11 12:35] LABS: BACTERIA,URINE NEGATIVE /HPF; SQUAMOUS EPITHELIAL CELL,UR RARE /HPF
--- NOTE | 2023-06-11 19:41 | Diagnostic Imaging Report ---
EXAMINATION: Chest (PA and lateral). CLINICAL INDICATION: 67-year-old female, preoperative exam. COMPARISON: January 13, 2020. FINDINGS: Heart size and mediastinal contours are unchanged. There is no identified pneumothorax. There is no pleural effusion. There is no identified focal airspace consolidation.There is end-stage left glenohumeral arthritis. IMPRESSION: No identified acute cardiopulmonary abnormality. Dictated by: Dictated on workstation # [id number]
[2023-06-18] VITALS (10 sets, daily range): BP systolic 100–157; BP diastolic 53–88
[~2023-06-18] VITALS: Ht 162.6 cm; Wt 76.5 kg
[~2023-06-18 07:32] MED LIST changes: +ACET-2267 PO; +CEFUROXIME INJECTION 750 MG in NS (IVPB) 50 ML 50 ML IV SCH; +CLON1TAB13 PO; +GABA300C PO; +ONDANSETRON INJECTION 4 MG/2 ML (SDV) IV PRN; +TEMAZEPAM 15 MG (RESTORIL) CAP PO PRN; +diphenhydrAMINE INJ 50 MG/ML VIAL IVP PRN
--- NOTE | 2023-06-18 07:38 | Progress Note-Pre Operative ---
Pre-Operative Progress Note Date of Available H&P: Jun 11, 2023 Date H&P Reviewed: Jun 18, 2023 Time H&P Reviewed: 07:38 Changes from last HP none Pre-Operative Diagnosis: joshuat knee osteoarthritis FAY NICOLE MD Jun 18, 2023 07:38
--- NOTE | 2023-06-18 07:39 | Progress Note-Post Operative ---
Post-Operative Progess Note Surgeon (s)/Cost Recorder (s) Surgeon FAY NICOLE MD Cost Recorder: Bryce Chandra Pre-Operative Diagnosis left knee osteoarthritis Post-Operative Diagnosis left knee osteoarthritis Procedure & Operative Findings Date of Procedure 06/18/23 Procedure Performed/Findings left total knee arthroplasty Anesthesia Type spinal Estimated Blood Loss Estimated blood loss (mL): ;minimal Specimens/Packing Specimens Removed none Packing: none FAY NICOLE MD Jun 18, 2023 07:39
--- NOTE | 2023-06-18 07:41 | D/C HH Face to Face Order ---
D/C Face to Face Orders Reconcile Patient Problems Problems Reviewed?: Yes Instructions for Patient Via [facility] [employer], Patient Instructions/FollowUp: three weeks Physician to follow Patient: three weeks Discharge Diet for Home: Regular Diet Patient Data-Allergies,Ht & Wt Patient Allergies: Coded Allergies: No Known Drug Allergies (Unverified , 06/11/23) Home Health Need/Face to Face Date of Face to Face: Jun 18, 2023 Clinical Findings: Muscle weakness, Pain with ambulation I have seen Pt amxo-yk-horu: Yes Discharged To: Home Diagnosis/Conditions: left total knee arthroplasty Patient is Homebound due to: Muscle weakness, Pain w/ambulation Homebound Status Due to the above stated illness, injury or surgical procedure (medical condition or diagnosis) and associated clinical findings, the patient is homebound because of his/her inability to leave home except with aid of a supportive device and/or person AND leaving the home requires a considerable and taxing effort or is medically contraindicated. Pt req the following assistanc: Walker Home Health Nursing Orders Home Health Services Order: Physical Therapy-Evaluate & Treat DC left knee mckenna and apply steri strips 07/02/23 Therapy Orders Therapy Orders: Physical Therapy, PT to assess for OT Therapy Specific Orders: Eval assistive deivces, Teach enviro modifications/safety, Gait training, Increase strength/endurance, Provider maintenance therapy, Restore ROM Certify Stmt I certify that this patient is under my care and that I, a nurse practitioner or a physician; a assistant athletic trainer working with me, had a face to face encounter that - meets the physician face to face encounter requirements with this patient as dated. FAY NICOLE MD Jun 18, 2023 07:41
[2023-06-18] MEDS ORDERED: CEFUROXIME INJECTION 1,500 MG in NS (IVPB) 50 ML 50 ML IV ONE (07:45)
[2023-06-18] MEDS ORDERED: LACTATED RINGERS 1,000 ML 1,000 ML IV PRN (07:45)
[2023-06-18] MEDS ORDERED: INTRA-ARTICULAR IU ONE ×5 (09:30)
[2023-06-18] MEDS ORDERED: ONDANSETRON INJECTION 4 MG/2 ML (SDV) IVP PRN (11:15)
[2023-06-18] MEDS ORDERED: morphine INJ 10 MG/ML 1ML (SYR OR VIAL) IVP ONE (11:15)
--- NOTE | 2023-06-18 11:42 | Progress Note ---
Standard Progress Note Progress Notes/Assess & Plan Date Seen by a Provider: Jun 18, 2023 Time Seen by a Provider: 11:21 Progress/Assessment & Plan post op check no complaints spinal in effect radiographs--Hw well positioned without fracture LLE-2 plus DP pulse with brisk cap refill s/p LTKA mobilize as able FAY NICOLE MD Jun 18, 2023 11:42
--- NOTE | 2023-06-18 12:38 | Diagnostic Imaging Report ---
EXAMINATION: Left knee, 1 or 2 views. HISTORY: Postop. COMPARISON: None available. FINDINGS: There is a left total knee arthroplasty. Alignment is near-anatomic. There is a small effusion. There is soft tissue gas and swelling with skin mckenna consistent with recent surgery. IMPRESSION: 1. Expected postsurgical changes of left total knee arthroplasty. Dictated by: Dictated on workstation # [id number]
[2023-06-18] MEDS ORDERED: CEFUROXIME INJECTION 750 MG in NS (IVPB) 50 ML 50 ML IV SCH (14:00)
--- NOTE | 2023-06-18 14:26 | Physical Therapy Evaluation ---
PT Evaluation-General Medical Diagnosis Admission Date Jun 18, 2023 at 07:32 Medical Diagnosis: LTKA Onset Date: Jun 18, 2023 Therapy Diagnosis Therapy Diagnosis: Gait deficit, strength deficit Precautions Precautions/Isolations: Fall Prevention, Standard Precautions Weight Bear Status Right Lower Extremity: Right Full Weight Bearing Left Lower Extremity: Left Weight Bearing/Tolerated Referral Physician: Dr. Chaudhry Reason for Referral: Evaluation/Treatment Medical History Reviewed History: Yes Social History Home: Single Level Current Living Status: Other Family Entry Into Home: Stairs Without Railing PT Steps Into Home: 1 Prior Prior Level of Function SCALE: Activities may be completed with or without assistive devices. 8-Toollkvmxw-oknjuix completes the activity by him/herself with no assistance from a helper. 5-Set-up or Clean-up Assistance-helper sets up or cleans up; patient completes activity. [place] assists only prior to or following the activity. 4-Supervision or Touching Assistance-helper provides verbal cues and/or touching/steadying and/or contact guard assistance as patient completes activity. Assistance may be provided throughout the activity or intermittently. 3-Partial/Moderate Assistance-helper does LESS THAN HALF the effort. [place] lifts, holds or supports trunk or limbs, but provides less than half the effort. 2-Substantial/Maximal Assistance-helper does MORE THAN HALF the effort. [place] lifts or holds trunk or limbs and provides more than half the effort. 9-Sgdfjcjwf-xmlvmz does ALL the effort. Patient does none of the effort to complete the activity. Or, the assistance of 2 or more helpers is required for the patient to complete the activity. If activity was not attempted, code reason: 7-Patient Refused. 9-Not Applicable-not attempted and the patient did not perform the activity before the current illness, exacerbation or injury. 10-Not Attempted due to Environmental Limitations-(lack of equipment, weather restraints, etc.). 88-Not Attempted due to Medical Conditions or Safety Concerns. Bed Mobility: 6 Transfers (B,C,W/C): 6 Gait: 6 Stairs: 6 Indoor Mobility (Ambulation): Independent Stairs: Independent Prior Devices Use: None Has FWW at home. PT Evaluation-Current Subjective Patient lying supine in bed upon PT arrival, agreeable to treatment. Patient rates pain at 0/10 currently. Reports she still cannot feel her LEs. Objective Patient Orientation: Person, Place, Time, Situation Attachments: Oxygen, Polar Pack ROM/Strength ROM Lower Extremities Right LE WFLS all planes. Left knee extension 5 degrees from neutral, flexion 95 degrees. Strength Lower Extremities 3+/5 BLEs all planes Sensory Vision: Functional Hearing: Functional Sensation Right Lower Extremit: Impaired Sensation Left Lower Extremity: Impaired Transfers Roll Left to Right (QC): 4 Sit to Lying (QC): 4 Lying to Sitting/Side of Bed(Q: 4 Sit to Stand (QC): 2 Chair/Hrh-je-Jgtbl Xfer(QC): 2 Gait Does the Patient Walk?: No and Walking Goal IS indicated Mode of Locomotion: Walk Anticipated Mode of Locomotion: Walk Balance Sitting Static: Good Sitting Dynamic: Good Standing Static: Poor Standing Dynamic: Poor Assessment/Needs Patient lying supine in bed upon PT arrival, agreeable to treatment. LEs still numb and unable to bear weight. Patient performs all bed mobility and transfers with SBA, Sit to stand andSPT to the chair with max a. Patient unable to safely bear any weight with standing at this time. Patient in chair post treatment with all needs met, nursing notified, call light in hand. Rehab Potential: Fair PT Senior Care Goals Senior Care Goals PT Recycling Center Operator Goals Time Frame: Jul 26, 2023 Roll Left & Right (QC): 6 Sit to Lying (QC): 6 Lying-Sitting on Side/Bed(QC): 6 Sit to Stand (QC): 6 Chair/Tad-fp-Brpoo Xfer(QC): 6 Toilet Transfer (QC): 6 Does the Patient Walk: Yes Walk 10 feet (QC): 6 Walk 50ft with 2 Turns (QC): 6 Walk 150 ft (QC): 4 1 Step (curb) (QC): 4 PT Plan Problem List Problem List: Activity Tolerance, Functional Strength, Safety, Balance, Gait, Transfer, Bed Mobility, ROM Treatment/Plan Treatment Plan: Continue Plan of Care Treatment Plan: Bed Mobility, Education, Functional Activity Sully, Functional Strength, Group Therapy, Gait, Safety, Therapeutic Exercise Treatment Duration: Jul 26, 2023 Frequency: 11 times per week Estimated Hrs Per Day: .25 hour per day Patient and/or Family Agrees t: Yes Safety Risks/Education Patient Education: Gait Training, Transfer Techniques Teaching Recipient: Patient Teaching Methods: Demonstration, Discussion Response to Teaching: Verbalize Understanding, Return Demonstration Time Time In: 1343 Time Out: 1357 DATE: Jun 18, 2023 Total Billed Treatment Time: 14 Total Billed Treatment Visit, THIAGO GARCIA PT Jun 18, 2023 14:26
--- NOTE | 2023-06-18 15:34 | Consultation - Hospitalist ---
HPI History of Present Illness: HPI/Chief Complaint Pt is a 67yoCF with PMH of HLD, COPD, OA who was admitted for left knee replacement. She reports doing well. She has no complaints. Pain is controlled as a 12/26. She is already in the chair and moving her leg around. I am consulted for medical management. Source: patient Date Seen 06/18/23 Attending Physician Roderick Zee DO PCP Admitting Physician: Braxton Chaudhry MD Attending Physician: Braxton Chaudhry MD Referring Physician Date of Admission Jun 18, 2023 at 07:32 Home Medications & Allergies Home Medications Reviewed patient Home Medication Reconciliation performed by pharmacy medication reconciliations set up technician and/or nursing. Patients Allergies have been reviewed. Allergies Allergies Coded Allergies No Known Drug Allergies (Unverified06/11/23) Past Keglazr-Zkpvgu-Mooxlg Hx Patient Social History Tobacco Use?: No Substance use?: No Alcohol Use?: Yes Immunizations Up To Date First/Initial COVID19 Vaccinat: NOVEMBER 2020 Second COVID19 Vaccination Gregory: DECEMBER 2020 Tetanus Booster (TDap): Unknown Hepatitis A: Yes Date of Pneumonia Vaccine: Jun 09, 2018 Seasonal Allergies Seasonal Allergies: No Current Status status: No status: No Advance Directives: No Communicates: Verbally Primary Language: Micronesian Preferred Spoken Language: Micronesian Sensory deficits: Vision impairment Implanted or Applied Medical D: None Past Medical History Surgeries: Eye Surgery, Hysterectomy, Oophorectomy, Orthopedic COPD, Emphysema Currently Using CPAP: No Currently Using BIPAP: No High Cholesterol Headaches /Migraines 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: Hysterectomy Sexually Transmitted Disease: No Gastroesophageal Reflux, Polyps, Hiatal Hernia, Ulcer Arthritis, Back Injury, Chronic Back Pain, Fractures, Spasms Cataract Loss of Vision: Denies Hearing Impairment: Denies Anxiety, PTSD, Depression Blood Disorders: No Adverse Reaction/Blood Tranf: No Review of Systems Constitutional: see HPI Physical Exam Physical Exam Vital Signs Vital Signs - First Documented 06/18/23 06/18/23 10:48 12:43 Temp 36.3 Pulse 55 Resp 16 B/P (MAP) 100/53 (69) Pulse Ox 98 O2 Delivery Nasal Cannula O2 Flow Rate 6.00 Capillary Refill : Less Than 3 Seconds Height, Weight, BMI Height: '" Weight: lbs. oz. kg; 28.93 BMI Method: General Appearance: No Apparent Distress, WD/WN Respiratory: Lungs Clear, No Respiratory Distress Cardiovascular: Regular Rate, Rhythm, No Murmur Gastrointestinal: Normal Bowel Sounds, Soft Extremity: No Swelling; Other (FOUZIA hose in place) Neurologic/Psychiatric: Alert, Oriented x3 Results Results/Procedures Labs Patient resulted labs reviewed. Imaging: Reviewed Imaging Report Imaging [facility], [facility]. [place], [place] NAME: [facility] REC#: [id number] PT STATUS: ADM IN : 1955 PHYSICIAN: MARIA R COELLO ADMIT DATE: 06/18/23 Signed Date of Exam:06/18/23 KNEE, LEFT, 2 VIEWS (AP & LAT) EXAMINATION: Left knee, 1 or 2 views. HISTORY: Postop. COMPARISON: None available. FINDINGS: There is a left total knee arthroplasty. Alignment is near-anatomic. There is a small effusion. There is soft tissue gas and swelling with skin mckenna consistent with recent surgery. IMPRESSION: 1. Expected postsurgical changes of left total knee arthroplasty. Dictated by: Dictated on workstation # [id number] Dict: 06/18/23 1233 Trans: 06/18/23 1313 [id number] Interpreted by: THIAGO FISCHER MD Electronically signed by: THIAGO FISCHER MD 06/18/23 1313 Assessment/Plan Assessment and Plan Assess & Plan/Chief Complaint Left knee osteoarthritis s/p TKA POD #0 Pain regimen Lovenox Bowel regimen Management per primary HLD COPD Anxiety Continue home meds as able DVt ppx; Lovenox Will round prn- please call with any needs DES VELOZ MD Jun 18, 2023 15:34
[2023-06-18] MEDS ORDERED: RT-Ipratropium/Albuterol NEB 3 ML VIAL INH PRN (16:30)
--- NOTE | 2023-06-18 16:33 | OPERATIVE REPORT ---
DATE OF SERVICE: 06/18/2023 PREOPERATIVE DIAGNOSIS: Left knee primary osteoarthritis. POSTOPERATIVE DIAGNOSIS: Left knee primary osteoarthritis. PROCEDURE: Left total knee arthroplasty. SURGEON: Braxton Nicole MD RN MIDWIFE: Bryce Chandra, who assisted throughout the procedure and closed the incision. ANESTHESIA: Spinal by Jonny Lunsford CRNA. TOURNIQUET TIME: Approximately 65 minutes at 300 mmHg. ESTIMATED BLOOD LOSS: Minimal. DRAINS: None. COMPLICATIONS: None. POSTOPERATIVE PLAN: Routine protocol. MATERIALS: MicroPort cemented size 4 femur, cemented size 4 tibia with 10 mm insert and cemented size 29 patellar button. STATEMENT OF MEDICAL NECESSITY: The patient is a 67-year-old female with longstanding progressive left knee pain. She has undergone treatment with injections, arthroscopy, anti-inflammatories and activity modifications without relief. Due to functional impairment and failure to improve with conservative measures, the patient elected to proceed with surgical intervention. Radiographs revealed severe medial and patellofemoral joint space narrowing. DESCRIPTION OF PROCEDURE: After risks and benefits of the procedure were discussed and questions were answered, an informed consent was signed and placed on chart. The operative site was confirmed in the preoperative holding area initialed by surgeon. The patient was then transported to the operating room and after adequate levels of spinal anesthetic were obtained, a timeout was called, confirming the operative site. The left lower extremity was prepped and draped in the usual sterile fashion. With the leg elevated and the knee flexed, tourniquet was inflated to 300 mmHg. Standard anterior approach was utilized. Hemostasis was obtained with cautery. A medial parapatellar arthrotomy was performed, leaving 1 cm cuff on the patella for later reattachment. Portion of the fat pad was resected. Subperiosteal release was performed in the proximal medial tibia, being careful to stay on the bony surface. The ACL was resected. Intramedullary guide was passed into the femoral canal. The distal cutting block was placed. Distal cut was made. The femur was sized to a size 4. The 4 cutting block was placed parallel to the epicondylar axis and cuts were made from posterior to anterior. Subperiosteal release was then carefully performed on the posterior distal femur, being careful to stay on the bony surface. Intramedullary guide was then passed into the tibia. The cutting block was placed. The drop dulce maria transected the intermalleolar axis and the cut was made. The baseplate was placed and had excellent coverage. The drop dulce maria transected the intermalleolar axis. This was prepared with the drill and keel punch. Femoral trial was placed and trochlear cut was made. A 10 mm trial insert was placed. The patella was then prepared by resecting 10 mm off the undersurface using the freehand technique. The PEG guide was placed and peg holes were drilled. A 29 trial was placed. The knee was taken through range of motion. Full extension was easily obtained, 120 degrees of flexion with gravity was easily obtained. There was no anterior/posterior or medial/lateral laxity in flexion or extension. The trials were removed. The joint was irrigated with pulse lavage. The periarticular block was placed in the posterior capsule, medial and lateral retinaculum extensor mechanism and subcutaneous tissues. The bone ends were irrigated and dried. The tibial prosthesis was cemented into position. Excessive cement was removed. The superior surface was irrigated and dried and the polyethylene insert was placed. The distal femur was irrigated and dried and the femoral prosthesis was cemented into position. Excessive cement was removed. The knee was brought out into full extension until the cement had cured. The undersurface of the patella was irrigated and dried. The patellar button was then cemented into position. Excessive cement was removed. The joint was further irrigated with pulse lavage. In addition, 1 liter of Irrisept was used throughout the procedure. The arthrotomy was closed with #2 Tevdek in hobnvj-ut-tyobo interrupted fashion. The knee was flexed. Repair was stable. Subcutaneous tissues were irrigated with pulse lavage. A total of 6 liters was used throughout the procedure. A 0 Vicryl was used for the deep subcutaneous layer, 2-0 Vicryl for the superficial subcutaneous layer, mckenna used on the skin. A soft dressing was applied. The tourniquet was deflated. The patient was transferred to the recovery room awake and in stable condition. Job ID: [id number] DocumentID: [id number] Dictated Date: 06/18/2023 10:51:08 Sheet Metal Worker Date: 06/18/2023 16:32:00 Dictated By: BRAXTON NICOLE MD
[2023-06-18] MEDS: NS IV 1000 ML 1,000 ML IV SCH (16:58)
[2023-06-18] MEDS: CEFUROXIME INJECTION 750 MG in NS (IVPB) 50 ML 50 ML IV SCH ×2 (16:58→23:58)
[2023-06-18] MEDS: SENNA W/DOCUSATE TABLET PO SCH ×2 (19:35→20:18)
[2023-06-18] MEDS: clonazePAM 1 MG TABLET PO SCH (20:18)
[2023-06-18] MEDS ORDERED: GABAPENTIN 300 MG CAPSULE PO SCH (21:00)
[2023-06-19] MEDS: NS IV 1000 ML 1,000 ML IV SCH (00:03)
[2023-06-19 03:22] VITALS: BP 134/64
[2023-06-19] MEDS: oxyCODONE/ACETAMINOPHEN 5/325MG TABLET PO PRN ×3 (03:27→12:08)
[2023-06-19 05:32] LABS: HEMOGLOBIN 11.4 g/dL (11.5-16.0)
--- NOTE | 2023-06-19 07:33 | Anesthesia-Regional Post-Op ---
Regional Patient Condition Mental Status: Alert, Oriented x3 Circulation: Same as Pre-Op Headache: Absent Sensation: Full Recovery Motor Block: Absent Post Op Complications Complications None Follow Up Care/Instructions Patient Instructions None needed. Anesthesia/Patient Condition Patient is doing well, no complaints, stable vital signs, no apparent adverse anesthesia problems. No complications reported per nursing. D/C home per [facility] [place] Criteria: Yes MINA ALVARADO CRNA Jun 19, 2023 07:33
[2023-06-19] MEDS: ASPIRIN enteric coated 81MG TABLET PO SCH ×2 (07:34→07:38)
[2023-06-19] MEDS: CELECOXIB 400 MG CAPSULE PO SCH ×2 (07:34→07:38)
[2023-06-19] MEDS: SENNA W/DOCUSATE TABLET PO SCH (07:34)
[2023-06-19] MEDS: clonazePAM 1 MG TABLET PO SCH (07:34)
[2023-06-19] MEDS ORDERED: ENOXAPARIN 30 MG/0.3 ML SYRINGE SC SCH (08:00)
--- NOTE | 2023-06-19 08:10 | Progress Note ---
Standard Progress Note Progress Notes/Assess & Plan Date Seen by a Provider: Jun 19, 2023 Time Seen by a Provider: 08:02 Progress/Assessment & Plan post op check no complaints spinal in effect radiographs--Hw well positioned without fracture LLE-2 plus DP pulse with brisk cap refill s/p LTKA mobilize as able Final Diagnosis no complaints Vital Signs Date Time Temp Pulse Resp B/P (MAP) Pulse Ox O2 Delivery O2 Flow Rate FiO2 06/19/23 03:22 36.8 78 16 134/64 (87) 98 Nasal Cannula 2.00 2.00 06/18/23 23:03 36.4 68 16 116/58 (77) 98 Nasal Cannula 2.00 2.00 06/18/23 20:31 Nasal Cannula 2.00 06/18/23 19:44 36.1 66 16 133/58 (83) 98 Nasal Cannula 2.00 06/18/23 19:43 98 Nasal Cannula 2.00 06/18/23 16:12 36.2 62 98 06/18/23 15:58 36.2 62 18 124/66 (85) 98 Room Air 06/18/23 13:48 Room Air 06/18/23 12:43 35.3 55 16 157/88 (111) 98 Room Air 06/18/23 11:40 Room Air 06/18/23 11:30 36.1 11 144/73 (96) 98 Room Air 06/18/23 11:21 Room Air 06/18/23 11:20 15 135/68 (90) 100 Nasal Cannula 6.00 06/18/23 11:10 14 122/64 (83) 100 Nasal Cannula 6.00 06/18/23 11:05 Nasal Cannula 6.00 06/18/23 11:00 16 117/59 (78) 99 Nasal Cannula 6.00 06/18/23 10:48 36.3 16 100/53 (69) 98 Nasal Cannula 6.00 06/18/23 10:48 Nasal Cannula 6.00 I & O 06/19/23 07:00 Intake Total 1360 ml Output Total 850 ml Balance 510 ml Laboratory Tests Test 06/19/23 05:22 Range/Units Hemoglobin 11.4 L 11.5-16.0 g/dL Hematocrit 35 35-52 % LLE--intact sensation to light touch throughout intact DF and PF of toes and ankle no calf tenderness neg Faviola's s/p LTKA PT possible DC later today FAY NICOLE MD Jun 19, 2023 08:10
[2023-06-19 08:28] VITALS: BP 150/77
--- NOTE | 2023-06-19 10:37 | Physical Therapy Daily Note ---
PT Daily Note-Current Subjective Patient agrees to PT. Pain Numeric Pain Scale: 5-Moderate Pain Location: Left Location Body Site: Knee Pain Description: Acute Section J - Health Conditions 1. Rarely or not at all 2. Occasionally 3. Frequently 4. Almost constantly 8. Unable to answer Pain Effect on Sleep: 1 Pain Interference with Therapy: 1 Pain Interference w/Day-to-Day: 1 Mental Status Patient Orientation: Normal For Age Transfers SCALE: Activities may be completed with or without assistive devices. 3-Xjkwdplbzo-yzxkmkf completes the activity by him/herself with no assistance from a helper. 5-Set-up or Clean-up Assistance-helper sets up or cleans up; patient completes activity. [place] assists only prior to or following the activity. 4-Supervision or Touching Assistance-helper provides verbal cues and/or touching/steadying and/or contact guard assistance as patient completes activity. Assistance may be provided throughout the activity or intermittently. 3-Partial/Moderate Assistance-helper does LESS THAN HALF the effort. [place] lifts, holds or supports trunk or limbs, but provides less than half the effort. 2-Substantial/Maximal Assistance-helper does MORE THAN HALF the effort. [place] lifts or holds trunk or limbs and provides more than half the effort. 2-Xhmdywmay-daqupd does ALL the effort. Patient does none of the effort to complete the activity. Or, the assistance of 2 or more helpers is required for the patient to complete the activity. If activity was not attempted, code reason: 7-Patient Refused. 9-Not Applicable-not attempted and the patient did not perform the activity before the current illness, exacerbation or injury. 10-Not Attempted due to Environmental Limitations-(lack of equipment, weather restraints, etc.). 88-Not Attempted due to Medical Conditions or Safety Concerns. Lying to Sitting/Side of Bed(Q: 6 Sit to Stand (QC): 6 Chair/Vvk-ud-Womas Xfer(QC): 6 Weight Bearing Right Lower Extremity: Right Full Weight Bearing Left Lower Extremity: Left Weight Bearing/Tolerated Gait Training Distance: 250' Walk 10 feet (QC): 5 Walk 50 ft with 2 Turns(QC): 5 Walk 150 ft (QC): 5 Gait Assistive Device: FWW steady, reciprocal pattern with noted minimal left LE weight bearing due to patient fear (per her report) Exercises Supine Ex: Ankle pumps, Quad Set, Heel Slides, Straight leg raise Supine Reps: 15 (noted lag with SLR) Seated Therapy Exercises: Long arc quads Seated Reps: 15 Assessment Patient up in recliner with needs met. Plan dismiss to home on this date with home health intervention. Patient left knee AROM 10-70 degrees in supine PT Donor Services Technician Goals Longterm Goals PT Donor Services Technician Goals Time Frame: Jul 26, 2023 Roll Left & Right (QC): 6 Sit to Lying (QC): 6 Lying-Sitting on Side/Bed(QC): 6 Sit to Stand (QC): 6 Chair/Tag-md-Nvrdw Xfer(QC): 6 Toilet Transfer (QC): 6 Does the Patient Walk: Yes Walk 10 feet (QC): 6 Walk 50ft with 2 Turns (QC): 6 Walk 150 ft (QC): 4 1 Step (curb) (QC): 4 PT Plan Treatment/Plan Treatment Plan: Continue Plan of Care Treatment Plan: Bed Mobility, Education, Functional Activity Sully, Functional Strength, Group Therapy, Gait, Safety, Therapeutic Exercise Treatment Duration: Jul 26, 2023 Frequency: 11 times per week Estimated Hrs Per Day: .25 hour per day Patient and/or Family Agrees t: Yes Time Time In: 805 Time Out: 828 DATE: Jun 19, 2023 Total Billed Treatment Time: 23 Total Billed Treatment 1 visit EX 10 min GT 13 min JULIUS REYNOLDS PT Jun 19, 2023 10:37
[2023-06-19 12:24] VITALS: BP 148/79
--- NOTE | 2023-06-19 13:13 | Physical Therapy Daily Note ---
PT Daily Note-Current Subjective Patient agrees to PT. Pain Section J - Health Conditions 1. Rarely or not at all 2. Occasionally 3. Frequently 4. Almost constantly 8. Unable to answer Pain Effect on Sleep: 1 Pain Interference with Therapy: 1 Pain Interference w/Day-to-Day: 1 Mental Status Patient Orientation: Normal For Age Transfers SCALE: Activities may be completed with or without assistive devices. 5-Wkdukreazc-[id number] completes the activity by him/herself with no assistance from a helper. 5-Set-up or Clean-up Assistance-helper sets up or cleans up; patient completes activity. [place] assists only prior to or following the activity. 4-Supervision or Touching Assistance-helper provides verbal cues and/or touching/steadying and/or contact guard assistance as patient completes activity. Assistance may be provided throughout the activity or intermittently. 3-Partial/Moderate Assistance-helper does LESS THAN HALF the effort. [place] lifts, holds or supports trunk or limbs, but provides less than half the effort. 2-Substantial/Maximal Assistance-helper does MORE THAN HALF the effort. [place] lifts or holds trunk or limbs and provides more than half the effort. 0-Ywkhluwdq-qfxzqf does ALL the effort. Patient does none of the effort to complete the activity. Or, the assistance of 2 or more helpers is required for the patient to complete the activity. If activity was not attempted, code reason: 7-Patient Refused. 9-Not Applicable-not attempted and the patient did not perform the activity before the current illness, exacerbation or injury. 10-Not Attempted due to Environmental Limitations-(lack of equipment, weather restraints, etc.). 88-Not Attempted due to Medical Conditions or Safety Concerns. Sit to Lying (QC): 6 Lying to Sitting/Side of Bed(Q: 6 Sit to Stand (QC): 6 Weight Bearing Right Lower Extremity: Right Full Weight Bearing Left Lower Extremity: Left Weight Bearing/Tolerated Gait Training Distance: 300' Walk 10 feet (QC): 6 Walk 50 ft with 2 Turns(QC): 6 Walk 150 ft (QC): 6 Gait Assistive Device: FWW reciprocal pattern/antalgic Exercises Supine Ex: Ankle pumps, Quad Set, Heel Slides, Straight leg raise Supine Reps: 15 Seated Therapy Exercises: Long arc quads Seated Reps: 15 Assessment Patient continues to lack 10-20 degrees extension in stand and with LAQ's. Able to get to 5 degrees in supine. Patient to dismiss to home on this date. PT Retirement Goals Retirement Goals PT Retirement Goals Time Frame: Jul 26, 2023 Roll Left & Right (QC): 6 Sit to Lying (QC): 6 Lying-Sitting on Side/Bed(QC): 6 Sit to Stand (QC): 6 Chair/Fpb-fe-Lfnwb Xfer(QC): 6 Toilet Transfer (QC): 6 Does the Patient Walk: Yes Walk 10 feet (QC): 6 Walk 50ft with 2 Turns (QC): 6 Walk 150 ft (QC): 4 1 Step (curb) (QC): 4 PT Plan Treatment/Plan Treatment Plan: Continue Plan of Care Treatment Plan: Bed Mobility, Education, Functional Activity [place], Functional Strength, Group Therapy, Gait, Safety, Therapeutic Exercise Treatment Duration: Jul 26, 2023 Frequency: 11 times per week Estimated Hrs Per Day: .25 hour per day Patient and/or Family Agrees t: Yes Time Time In: 1240 Time Out: 1304 DATE: Jun 19, 2023 Total Billed Treatment Time: 24 Total Billed Treatment 1 visit Ex 13 min GT 11 min JULIUS REYNOLDS PT Jun 19, 2023 13:13
[2023-06-19 17:25] VITALS: BP 148/79
== END 2023-06-19 17:26 | disposition home health service (06) | DRG 470 ==
LOC: 4TH 07:32 → SURG 07:33 → 4TH 11:40
PROVIDERS: ADMIT Orthopaedic Surgery; ATTEND Orthopaedic Surgery
PROC: 0SRD0J9 Replacement of Left Knee Joint with Synthetic Substitute, Cemented, Open Approach (ICD-10-PCS; principal; 2023-06-18 09:06)
DX: M17.12 Unilateral primary osteoarthritis, left knee (principal); G43.909 Migraine, unspecified, not intractable, without status migrainosus; F41.9 Anxiety disorder, unspecified; Z87.891 Personal history of nicotine dependence; J43.9 Emphysema, unspecified; E78.00 Pure hypercholesterolemia, unspecified; G89.29 Other chronic pain; M54.9 Dorsalgia, unspecified; F32.A Depression, unspecified; F43.10 Post-traumatic stress disorder, unspecified; K21.9 Gastro-esophageal reflux disease without esophagitis
CPT/HCPCS: 36415; 71046; 73560; 80053; 81000; 85014; 85018; 85025; 85610; 86850; 86900; 86901; 87081; 93005; 94664